=== PATIENT | male | born 1960 | race Caucasian/White ===

== ENCOUNTER 2020-01-27 09:47 | Outpatient (RCR) | payer MEDICAID, SELFPAY | END 2020-01-27 23:59 | disposition home or self-care (01) | LOC: ANHAUDIO 09:47 | PROVIDERS: PCP Family Medicine; Visit Provider Family Medicine | DX: Z46.1 Encounter for fitting and adjustment of hearing aid (principal) | CPT/HCPCS: V5014 ==

== ENCOUNTER 2020-03-14 11:06 | Outpatient (CLI) | payer MEDICARE, MEDICAID, SELFPAY ==
--- NOTE | ~2020-03-14 | XR_ITS ---
EXAMINATION: XR knee RT 3V EXAM DATE: 03/14/2020 11:38 INDICATION: No known recent injury provided at this time. Pain of the right knee. TECHNIQUE: Three projections of the right knee. Comparison is made to prior examination from 7. FINDINGS: No evidence osteochondral defect or joint body in the right knee joint. There are faint meniscal calcifications, chondrocalcinosis. There is advanced arthritis at the proximal tibiofibular syndesmosis, could be posttraumatic or primary. Some scattered arterial sclerosis. There is moderate medial tibiofemoral, mild to moderate lateral tibiofemoral and patellofemoral ulke rtment primary osteoarthritis. No joint effusion. There are no acute fractures or dislocations ident ified. There is no subcutaneous gas. There are no radiopaque foreign bodies. Compared to 2017, mild progression of degenerative changes. IMPRESSION: 1. Advanced right proximal tibiofibular syndesmosis arthritis. 2. Moderate medial tibiofemoral compartment osteoarthritis. 3. Chondrocalcinosis. Reviewed, dictated and finalized at location A.
--- NOTE | ~2020-03-14 | XR_ITS ---
EXAMINATION: XR elbow LT min 3V EXAM DATE: 03/14/2020 11:38 INDICATION: No known recent injury provided at this time. Pain of the left elbow. TECHNIQUE: Left elbow frontal, lateral with flexion, and oblique projections obtained and reviewed. There is no prior study for comparison. FINDINGS: Left elbow anterior humeral line intact. There is mild primary osteoarthritis. No joint effusion. There are no acute fractures or dislocations identified. There is no subcutaneous gas. Th e soft tissue is unremarkable. There are no radiopaque foreign bodies. IMPRESSION: Mild left elbow osteoarthritis. Reviewed, dictated and finalized at location A.
--- NOTE | ~2020-03-14 | XR_ITS ---
EXAMINATION: XR knee LT 3V EXAM DATE: 03/14/2020 11:38 INDICATION: No known recent injury provided at this time. Pain of the left knee. TECHNIQUE: Three projections of the left knee. Comparison is made to prior examination from 11/08/2016 . FINDINGS: No evidence osteochondral defect or joint body in the left knee joint. There is faint me niscal cartilage calcification. Chondrocalcinosis can be an age related finding, but with other possi ble etiologies including CPPD, parathyroid disorders, hemochromatosis, gout. There is mild to moderat e medial tibiofemoral, mild lateral tibiofemoral, patellofemoral primary osteoarthritis. There are no acute fractures or dislocations identified. There is no subcutaneous gas. Some faint arterial calc ifications. There are no radiopaque foreign bodies. Compared to 2017, mild progression in degenerative changes. IMPRESSION: 1. Mild to moderate left knee osteoarthritis. 2. Chondrocalcinosis. Reviewed, dictated and finalized at location A.
== END 2020-03-14 11:07 | disposition home or self-care (01) ==
PROVIDERS: PCP Family Medicine; Visit Provider Family Medicine
DX: M25.522 Pain in left elbow (principal); M25.569 Pain in unspecified knee
CPT/HCPCS: 73080; 73562

== ENCOUNTER 2020-09-14 09:53 | Outpatient (CLI) | payer MEDICARE, MEDICAID, SELFPAY ==
[2020-09-16 01:27] LABS: SARS-CoV-2 RNA PCR Negative
== END 2020-09-14 09:54 | disposition home or self-care (01) ==
LOC: CHSLAB 09:56
PROVIDERS: PCP Family Medicine; Visit Provider Internal Medicine Critical Care Medicine
DX: Z01.812 Encounter for preprocedural laboratory examination (principal); Z20.822 Contact with and (suspected) exposure to COVID-19
CPT/HCPCS: C9803; U0003; U0005

== ENCOUNTER 2020-09-15 09:56 | Outpatient (CLI) | payer MEDICARE, MEDICAID, SELFPAY ==
--- NOTE | ~2020-09-15 | US_ITS ---
EXAMINATION: US arterial ankle brachial ind DATE: 09/15/2020 10:53 INDICATION: Peripheral vascular disease TECHNIQUE: Segmental pressures and plethysmographic and Doppler waveforms of the brachial and lower e xtremity arteries were obtained. COMPARISON: None. FINDINGS: Right and left brachial artery pressures of 127 mm Hg and 125 mm Hg, respectively, are concordant (no rmal difference <= 30 mmHg). The right ankle-brachial index (BARB) is 1.10 (normal >= 0.9-1.0). The right great toe-brachial index (TBI) is 0.96 (normal >= 0.65). Arterial Doppler waveforms are triphasic at the right posterior tibia l artery and biphasic at the right dorsalis pedis artery, both with brisk systolic upstrokes. The left BARB is 1.15. The left TBI is 1.94 suggesting this is artifactually elevated. Arterial Dopple r waveforms are triphasic at the left posterior tibial and biphasic at the left dorsalis pedis artery , both with brisk systolic upstrokes. IMPRESSION: 1. No significant arterial occlusive disease to either lower limb with normal bilateral ABIs Reviewed, dictated and finalized at location A. TRY GRADER IMPRESSION: 1. No significant arterial occlusive disease to either lower limb with normal b ilateral ABIs
== END 2020-09-15 09:57 | disposition home or self-care (01) ==
LOC: CHSIMG 09:59
PROVIDERS: PCP Family Medicine; Visit Provider Family Medicine
DX: I73.9 Peripheral vascular disease, unspecified (principal)
CPT/HCPCS: 93922

== ENCOUNTER 2020-09-16 20:02 | Outpatient (CLI) | payer MEDICARE, MEDICAID, SELFPAY ==
--- NOTE | 2020-09-22 15:04 | WPDSLEEPSTUD ---
Sleep Study Date of Study: 09/16/20 Ordering Provider: Dr.Bryan Parker Interpreting Physician: Sleep Study Type: Split Polysomnogram Height: 1.73 m Weight: 122.47 kg Body Mass Index: 41.0 Neck Circumference: 58.42 cm [place]: 13 Reason for Sleep Study patient has an established diagnosis of sleep apnea and was using positive airway pressure therapy. His machine however has malfunctioned and he needs a repeat evaluation and reassessment of his positive airway pressure need. Sleep History Patient has history of loud disruptive snoring, witnessed apneas, repeated arousals during night time, daytime sleepiness. [facility] Past Medical History Medical History (Updated 04/26/20 @ 10:28 by Ximena Morrison RT(R)) Afib Anxiety Arthritis Arthritis of elbow, left Arthritis of knee, degenerative Bleeding gums Chronic headaches Diabetes Ear pain Hearing loss HLD (hyperlipidemia) HTN (hypertension) Insomnia Nausea & vomiting Pneumonia Sleep apnea Sleep disorder SOB (shortness of breath) on exertion Stomach pain Stomach ulcer Urinary frequency Vision loss Surgical History Surgical History History of ear surgery History of elbow surgery Family History Family History Other Diabetes mellitus Heart disease Hypertension Neuropathy Social History Social History (Updated 04/26/20 @ 10:29 by Ximena Morrison, RT(R)) Smoking status: Former smoker Smoking end date: 08/26/16 Alcohol intake: never Substance use: unknown Gender identity (if verbalized by the patient): Male Medications Home Medications Medication Instructions Recorded Confirmed Type hydrocodone 5 mg-acetaminophen 325 1 tablet PO Q8H PRN 04/25/20 History mg tablet Sleep Procedure Patient underwent standard polysomnographic evaluation using split night protocol. During CPAP titration patient used Quattro Mirage fullface mask of medium size. Sleep Architecture Diagnostic study Total recording time 195 minutes, total sleep time 127 minutes, sleep efficiency 65.2%. Sleep latency 2.7 minutes and there was no REM sleep in the diagnostic study. Sleep stages - awake after sleep onset 65 minutes, stage N1 33.1%, N2 66.9% N3 0%, stage R 0%. Supine sleep 87.2% Treatment study Total recording time 191 minutes, sleep time 167 minutes, sleep efficiency 87.7%. Sleep latency 2.9 minutes, REM latency 8 minutes. Sleep stages awake after sleep onset 20 minutes, stage N1 7.8%, N2 71.6% N3 0%, stage R 20 0.6%. Supine sleep 69%, supine REM 10.5% Respiratory Analysis [facility] criteria used. Diagnostic study - There were no apneas, 197 hypopneas occurred with index 93.1 Treatment study - During CPAP titration there were no apneas noted. Fifty-five hypopneas occurred with index of 19.7. REM index 7.0, non-REM index 23. Supine index 18.2 non supine index 24.3. Arousals Diagnostic study - Total arousals 236 with index 72.7, 146 arousals due to hypopneas, 22 due to snores, 68 spontaneous. Treatment study- Total arousals 59 with index 18.6, 30 related to hypopneas, 11 due to snores 17 spontaneous. Periodic Limb Movements There was 1 leg movement during CPAP therapy with index 0.4. Otherwise there were no leg movements including no PLMs. Oximetry Data diagnostic study- mean oxygen saturation 86%, lowest saturation 71%,SaO2<90-126Min,SaO2<118Min. Treatment study- mean oxygen saturation 91%, lowest saturation 72%,SaO2<90-50Min,SaO2<88-42Min. Snoring Profile loud intermittent snoring. Cardiac Profile Sinus rhythm, mean heart rate 57 beats during diagnostic study. Treatment study - average heart rate 65 beats per minute. No significant arrhythmias. EEG Profile unremarkable EEG. Assessment and Plan Additional Plan the diagnostic study showed presence of severe obstructive sle
[2020-09-22 15:33] VITALS: BMI 41.0
== END 2020-09-16 20:03 | disposition home or self-care (01) ==
LOC: CHSCSM 20:04
PROVIDERS: PCP Family Medicine; Visit Provider Family Medicine
DX: G47.33 Obstructive sleep apnea (adult) (pediatric) (principal)
CPT/HCPCS: 95811

== ENCOUNTER 2020-12-24 09:29 | Outpatient (CLI) | payer MEDICARE, MEDICAID, SELFPAY | END 2020-12-24 09:30 | disposition home or self-care (01) | LOC: CHSCOVIDVC 09:29 | PROVIDERS: PCP Family Medicine | DX: Z23 Encounter for immunization (principal) | CPT/HCPCS: 0011A; 91301 ==

== ENCOUNTER 2021-01-21 09:29 | Outpatient (CLI) | payer MEDICARE, MEDICAID, SELFPAY | END 2021-01-21 09:30 | disposition home or self-care (01) | LOC: CHSCOVIDVC 09:29 | PROVIDERS: PCP Family Medicine | DX: Z23 Encounter for immunization (principal) | CPT/HCPCS: 0012A; 91301 ==

== ENCOUNTER 2021-07-26 10:25 | Outpatient (CLI) | payer MEDICARE, MEDICAID, SELFPAY ==
--- NOTE | 2021-07-26 10:30 | ECG_ITS ---
Measurements Intervals Mason Rate: 65 P: 63 DC: 127 QRS: 31 QRSD: 84 T: 15 QT: 379 QTc: 394 Interpretive Statements SINUS RHYTHM SUPRAVENTRICULAR TRIGEMINY MINIMAL Q WAVES- INFERIOR LEADS BASELINE ARTIFACT- I, II, III, AVR, AVL ABNORMAL ECG Electronically Signed On 07-26-2021 11:21:33 POT PRESS OPERATOR by Galileo Ruvalcaba D.O.
[2021-07-26 11:16] LABS: Anion Gap 11 mmol/L (8-16); Blood Urea Nitrogen 21 mg/dL (9-20); Calcium 9.4 mg/dL (8.4-10.2); Carbon Dioxide 23 mmol/L (22-30); Chloride 100 mmol/L (98-107); Estimated Glomerular Filt Rate > 60; Glucose 316 mg/dL (65-110); Potassium 4.5 mmol/L (3.4-5.0); Sodium 134 mmol/L (137-145)
== END 2021-07-26 10:26 | disposition home or self-care (01) ==
LOC: ANHSURGERY 10:32
PROVIDERS: Anesthesiology; PCP Family Medicine; Visit Provider Surgery
DX: Z01.818 Encounter for other preprocedural examination (principal); E11.9 Type 2 diabetes mellitus without complications; R00.8 Other abnormalities of heart beat
CPT/HCPCS: 36415; 80048; 93005

== ENCOUNTER 2021-08-01 00:26 | Day surgery (SDC) | payer MEDICARE, MEDICAID, SELFPAY ==
[2021-07-17 09:45] VITALS: BMI 41.3
--- NOTE | 2021-07-18 12:49 | PC.NURSE ---
Report to the Outpatient Waiting Room, entrance under the green pavilion located off [facility], at time 1:30 PM on date 08/01/2021. OR Time: 3:30 PM. - You and your visitor will be asked a series of questions to screen for COVID 19 for your protection. - A mask is required within the hospital. - Only one visitor is allowed at this time. Patient visitors will be guided where to wait when not with patient. Preoperative COVID Testing Requirements:PT VACCINATED No COVID Test needed if: (proof is required; if not received patient will have Rapid Test prior to entry) - Patient has received COVID Vaccine at least 14 days prior to procedure date or - Patient has positive COVID test result within last 90 days of surgery date. COVID Test needed if above criteria is not met If not COVID vaccinated a COVID test must be conducted within 72 hours of surgery and patient is asked to isolate self from time of testing until procedure. You will go to the [facility] for your COVID testing. The [facility] site is located at the corner of [address] [facility]. You will only be called if COVID results are positive and your surgeon may reschedule your elective surgery date. Patients may have clear liquids (water, carbonated beverages, clear teas, apple juice) until 3 hours prior to surgery with a maximum of 20 ounces. (BETWEEN MIDNIGHT AND 12:30 PM). - No food from midnight until time of surgery - Infants may have breast milk until 4 hours before surgery, infant formula 6 hours prior to surgery. - Children will be allowed to drink immediately following surgery. If applicable, please bring a bottle or sippy cup to assist with drinking. Juice, water, soda, and popsicles are readily available. For infants on formula, please bring formula the day of surgery. Pacifiers are allowed. Take the following medications with a SIP of water the morning of surgery: ALPRAZOLAM, AMLODIPINE, METOPROLOL Medications to discontinue per physician ELIQUIS Date to take last dose PER PT, DR LONG SAID TO STOP ELIQUIS 2 DAYS PRIOR TO PROCEDURE. Please no make-up, nail wolof, hairspray, perfume, deodorant, or body powder the day of surgery. No jewelry (including any body piercings) or valuables the day of surgery, leave them at home. Please take a shower or bath the night before, or the morning of, surgery with an antibacterial soap. Wear comfortable, loose fitting clothing. Children are encouraged to wear pajamas. - Jewelry must be removed prior to entering the operating room. Rings and piercings that are not removed may be cut off. - The hospital will not accept responsibility for valuables. - Please leave all valuables, including medications, at home the day of surgery. If you are going home after surgery, a licensed route sales driver must drive you home. - NO public transportation without another adult. - We recommend that an adult stay with you for 24 hours following discharge. - We also recommend that you do not drive, make important decision, drink alcoholic beverages, or take any drugs that were not prescribed by your health care provider for at least 24 hours after your discharge time. For Pediatric surgeries, we recommend two adults accompany the child home (only one inside the building at this time). Follow any additional instructions given to you from your surgeon. Telephone instructions given to DYLAN CAI and asked if any additional questions and then verbalized understanding. Patient advised to call surgeon office or pre surgery nurse liaison [phone] if any additional questions.
[2021-08-01] VITALS (7 sets, daily range): BP systolic 111–137; BP diastolic 58–86; PULSE 60–76; RESP 14–20; TEMP 36.4–36.7; O2SAT 95–99; BMI 41.1
--- NOTE | 2021-08-01 11:55 | WPDHPUPDATE1 ---
History and Physical Update Update Date/Time: 08/01/21 11:55 History and Physical has been reviewed, including an updated exam of the patient. There are NO changes in the patient's condition. Risks, benefits, and alternatives have been discussed and questions answered. Patient agrees to proceed with procedure.
--- NOTE | 2021-08-01 11:55 | PM.IMHP ---
H&P: HPI History of Present Illness Date/Time: 08/01/21 11:55 Chief Complaint: Left groin hidradenitis Narrative: This is a 61-year-old man who presents for excision of left groin hidradenitis. He denies any changes since last seen in the office. Review of Systems Review of Systems: All systems reviewed & are unremarkable except as noted in HPI and below Constitutional: Constitutional: Denies chills, Denies fever(s), Denies headache(s) and Denies weight loss Eyes: Eyes: Denies change in vision ENT: Denies dizziness, Denies headache(s), Denies neck mass and Denies throat swelling Cardiovascular: Cardiovascular: Denies chest pain, Denies lightheadedness and Denies dyspnea Respiratory: Respiratory: Denies cough, Denies dyspnea and Denies wheezing Gastrointestinal: Gastrointestinal: Denies abdominal pain, Denies change in bowel habits, Denies nausea and Denies vomiting Genitourinary: Genitourinary: Denies hematuria and Denies dysuria Musculoskeletal: Musculoskeletal: Reports as per HPI Integumentary/Breasts: Skin/Breast: Reports as per HPI Neurologic: Denies dizziness and Denies headache(s) Allergic/Immunologic: Allergic/Immunologic: Denies throat swelling and Denies wheezing PMFSH Past Medical History Medical History Afib Anxiety Arthritis Arthritis of elbow, left Arthritis of knee, degenerative Bleeding gums Chronic headaches Diabetes Ear pain Hearing loss HLD (hyperlipidemia) HTN (hypertension) Insomnia Nausea & vomiting Pneumonia Sleep apnea Sleep disorder SOB (shortness of breath) on exertion Stomach pain Stomach ulcer Urinary frequency Vision loss Surgical History Surgical History H/O hand surgery H/O left knee surgery History of ear surgery History of elbow surgery Hx of tonsillectomy Family History Family History Father Cerebrovascular accident COPD (chronic obstructive pulmonary disease) Mother Acute myocardial infarction Diabetes mellitus Sibling Acute myocardial infarction Other Heart disease Hypertension Neuropathy Social History Social History Years smoked: 40 Smoking status: Former smoker Tobacco type: cigarettes Smoking end date: 08/26/16 Alcohol intake: never Substance use: unknown Last use: 2016 Living arrangements: alone Additional occupation/education comments: disabled Gender identity (if verbalized by the patient): Male Spiritual care concerns: No Meds Home Medications and Allergies Home Medications Medication Instructions Recorded Confirmed Type alprazolam 0.5 mg tablet 0.5 mg PO DAILY 06/30/21 07/17/21 History amlodipine 10 mg tablet 10 mg PO DAILY 06/30/21 07/17/21 History apixaban 5 mg tablet 5 mg PO BID 06/30/21 07/17/21 History aspirin 81 mg capsule 81 mg PO DAILY 06/30/21 07/17/21 History canagliflozin 100 mg tablet 300 mg PO DAILY 06/30/21 07/17/21 History furosemide 40 mg tablet 40 mg PO QAM 06/30/21 07/17/21 History glimepiride 4 mg tablet 4 mg PO QAM 06/30/21 07/17/21 History lisinopril 40 mg tablet 40 mg PO DAILY 06/30/21 07/17/21 History metformin 500 mg tablet 500 mg PO DAILY 06/30/21 07/17/21 History metoprolol succinate 50 mg 50 mg PO DAILY 06/30/21 07/17/21 History tablet,extended release 24 hr pravastatin 40 mg tablet 40 mg PO DAILY 06/30/21 07/17/21 History sitagliptin 100 mg tablet 100 mg PO DAILY 06/30/21 07/17/21 History hydrocodone-acetaminophen 1 tablet PO PRN PRN 07/17/21 07/17/21 History Allergies Allergy/AdvReac Type Severity Reaction Status Date / Time No Known Allergies Allergy Verified 07/17/21 09:52 Exam Const: General: no acute distress and alert Orientation/consciousness: patient oriented x3 HENMT: Head: normocephalic and atraum
[2021-08-01] MEDS: LACTATED RINGERS 1,000 ML 30 ML IV CONT (12:33)
[2021-08-01 12:40] LABS: Glucose Point of Care 183 mg/dl (65-105)
--- NOTE | 2021-08-01 13:08 | WPDANESEPPF ---
Anes - Initial Pre Proc Eval Procedure: Operation Date: 08/01/21 13:30 Proposed Procedures p Excision Left Groin Hidradenitis - Kennedy Calderon DO Date/Time: 08/01/21 13:09 Surgeon: Kennedy Calderon DO Pre Op Diagnosis: hidradenitis left groin Patient Data Age: 61 Gender: M Height: 1.75 m Weight: 126.4 kg Last Vital Signs Temp 36.4 C L 08/01/21 13:06 Pulse 60 08/01/21 13:06 Resp 20 08/01/21 13:06 BP 111/58 L 08/01/21 13:06 Pulse Ox 96 08/01/21 13:06 Allergies Allergy/AdvReac Type Severity Reaction Status Date / Time No Known Allergies Allergy Verified 08/01/21 12:16 Home Medications Medication Instructions Recorded Confirmed Type alprazolam 0.5 mg tablet 0.5 mg PO DAILY 06/30/21 07/17/21 History amlodipine 10 mg tablet 10 mg PO DAILY 06/30/21 07/17/21 History apixaban 5 mg tablet 5 mg PO BID 06/30/21 08/01/21 History canagliflozin 100 mg tablet 300 mg PO DAILY 06/30/21 08/01/21 History furosemide 40 mg tablet 40 mg PO QAM 06/30/21 08/01/21 History glimepiride 4 mg tablet 4 mg PO QAM 06/30/21 08/01/21 History lisinopril 40 mg tablet 40 mg PO DAILY 06/30/21 07/17/21 History metformin 500 mg tablet 500 mg PO DAILY 06/30/21 07/17/21 History metoprolol succinate 50 mg 50 mg PO DAILY 06/30/21 07/17/21 History tablet,extended release 24 hr pravastatin 40 mg tablet 40 mg PO DAILY 06/30/21 07/17/21 History sitagliptin 100 mg tablet 100 mg PO DAILY 06/30/21 07/17/21 History hydrocodone-acetaminophen 1 tablet PO PRN PRN 07/17/21 08/01/21 History Laboratory Tests 08/01/21 12:35 POC Capillary Glucose 183 mg/dl H mg/dl (65-105) Patient hx anesthesia problems: none Family hx anesthesia problems: none Results Review: All pre-operative results and documents have been reviewed as part of the pre-operative evaluation. [facility] Past Medical History Medical History Afib Anxiety Arthritis Arthritis of elbow, left Arthritis of knee, degenerative Bleeding gums Chronic headaches Diabetes Ear pain Hearing loss HLD (hyperlipidemia) HTN (hypertension) Insomnia Nausea & vomiting Pneumonia Sleep apnea Sleep disorder SOB (shortness of breath) on exertion Stomach pain Stomach ulcer Urinary frequency Vision loss Surgical History Surgical History H/O hand surgery H/O left knee surgery History of ear surgery History of elbow surgery Hx of tonsillectomy Family History Family History Father Cerebrovascular accident COPD (chronic obstructive pulmonary disease) Mother Acute myocardial infarction Diabetes mellitus Sibling Acute myocardial infarction Other Heart disease Hypertension Neuropathy Social History Social History Years smoked: 40 Smoking status: Former smoker Tobacco type: cigarettes Smoking end date: 08/26/16 Alcohol intake: never Substance use: unknown Last use: 2016 Living arrangements: alone Additional occupation/education comments: disabled Gender identity (if verbalized by the patient): Male Spiritual care concerns: No Anes - Eval Final PreProcedure Day of Procedure 08/01/21 13:09 Patient weight: morbidly obese Heart: irregular rhythm Lungs: decreased breath sounds Airway: Mallampati scale class III Neurological: alert and oriented Last oral intake: >/= 8 hours ASA classification: III Emergent: no Anesthetic plan: proceed Anesthesia type and monitoring: general LMA and standard monitoring Results Review: All pre-operative results and documents have been reviewed as part of the pre-operative evaluation. Informed Consent: The patient's anesthetic plan and its attendant risks and benefits were discussed with the patient/family/POA. Questions were solicited and a
[2021-08-01] MEDS: ceFAZolin 3 GM/D5W 100 ML 100 ML IVPB (13:57)
[2021-08-01] MEDS: LIDO 1%/EPINEPHRINE 1:100,000 50 ML VIAL 20 ML INFILTRATE (14:16)
[2021-08-01 14:52] LABS: Glucose Point of Care 150 mg/dl (65-105)
--- NOTE | 2021-08-01 14:58 | W.PM.PROC2 ---
Procedure Note - Detailed Date of Procedure 08/01/21 Pre-op Diagnosis hidradenitis left groin Post-op Diagnosis same Procedure Performed Excision of left groin hidradenitis measuring 9 cm by 3 cm Surgeon Kennedy Calderon, DO Anesthesia general and local (1% lidocaine with epinephrine) Indications this is a 61-year-old man who presents with multiple years of dealing with hidradenitis in his groin. He has 1 area in particular that frequently flares up and causes swelling and drainage. He has been placed on oral antibiotics with no significant improvement. Discussions were made with the patient about treatment options and decision was made to proceed with excision left groin hidradenitis. Findings Left groin hidradenitis was excised. The patient had an area along the left groin region more posteriorly that had chronic induration and several sinus tracts. An elliptical incision was made wide enough to encompass this entire region which measured approximately 9 cm x 3 cm. Closure with 3-0 nylon vertical mattress interrupted sutures was performed. Description of Procedure Procedure as well as risks, benefits, and alternatives were discussed with the patient. Written consent was obtained and placed in chart prior to procedure. Patient was brought back to surgical suite. He was placed supine on operating table. Time-out was done to confirm patient and procedure. He was then placed under general anesthesia with LMA by the anesthesia department. He was then placed in lithotomy position. His groin area was prepped and draped in sterile fashion using Betadine prep. 1% lidocaine with epinephrine was then infiltrated locally around the involved area of hidradenitis. A 9 cm x 3 cm elliptical incision was then made around the area using a 15 blade scalpel. Electrocautery was then used for hemostasis and for dissection off of the subcutaneous tissue. The hidradenitis skin was completely excised with electrocautery. It was sent to the lab for pathology. The wound bed was then irrigated with sterile saline. The skin edges were then reapproximated using 3-0 nylon vertical mattress interrupted sutures. Bacitracin ointment was then applied followed by 4 x 4 gauze and tape. The patient was then awakened from anesthesia and transferred to recovery. Estimated Blood Loss -10.0 Pathology yes Complications No immediate complications Condition stable Disposition same day
== END 2021-08-01 16:18 | disposition home or self-care (01) ==
PROVIDERS: PCP Family Medicine; Visit Provider Surgery
PROC: (CPT 11462; principal; 2021-08-01 13:30)
DX: L73.2 Hidradenitis suppurativa (principal); I48.91 Unspecified atrial fibrillation; E11.9 Type 2 diabetes mellitus without complications; I10 Essential (primary) hypertension; E78.5 Hyperlipidemia, unspecified; G47.30 Sleep apnea, unspecified; Z87.891 Personal history of nicotine dependence; E66.01 Morbid (severe) obesity due to excess calories; Z68.41 Body mass index [BMI] 40.0-44.9, adult; Z79.01 Long term (current) use of anticoagulants; Z79.84 Long term (current) use of oral hypoglycemic drugs
CPT/HCPCS: 11462; 82948; 88304; A9270; J0690; J2250; J2270; J2704; J7120

== ENCOUNTER 2022-03-07 10:00 | Outpatient (CLI) | payer MEDICARE, MEDICAID, SELFPAY | END 2022-03-07 10:01 | disposition home or self-care (01) | LOC: CHSAUDIO 10:04 | PROVIDERS: PCP Family Medicine; Visit Provider Family Medicine | DX: H91.93 Unspecified hearing loss, bilateral (principal) | CPT/HCPCS: 92557; 92567 ==

== ENCOUNTER 2022-04-16 13:00 | Outpatient (RCR) | payer MEDICARE, MEDICAID, SELFPAY | END 2022-06-19 23:59 | disposition home or self-care (01) | LOC: ANHAUDASC 13:00 | PROVIDERS: PCP Family Medicine; Visit Provider Family Medicine | DX: Z46.1 Encounter for fitting and adjustment of hearing aid (principal) | CPT/HCPCS: 99199 ==

== ENCOUNTER 2023-03-26 12:19 | Outpatient (CLI) | payer MEDICARE, MEDICAID, SELFPAY ==
--- NOTE | ~2023-03-26 | CT_ITS ---
EXAMINATION: CT lung screening DATE: 03/26/2023 12:43 INDICATION: personal history of nicotine dependence, hx COPD TECHNIQUE: Computed tomography (CT) of the chest was performed without intravenous contrast. Addition al 3D reconstructions utilizing coronal maximum intensity projection (MIP) were performed. Automated exposure control and iterative reconstruction technique were employed. The dose-length product was 86 2.11 mGy-cm. COMPARISON: Chest CT dated 03/19/2019 FINDINGS: Calcified nodules in the right upper and lower and left lower lobes along with calcified right hilar lymph nodes consistent with old granulomatous disease. Unchanged 6 mm noncalcified nodules in the ant erobasilar segment of the left lower lobe. Linear bands of discoid atelectasis/scarring in the bilate ral lower lobes and lingula. No other new pulmonary nodules, pneumonia, pulmonary edema or pleural ef fusion. Heart size is normal. Atherosclerotic coronary artery calcifications. No pericardial effusion . No pathologically enlarged thoracic lymphadenopathy. There is diffuse mild wall thickening along th e distal esophagus which could be seen with reflux or esophagitis. Diffuse hepatic steatosis. 1.2 cm low-attenuation cyst in the left hepatic lobe. Bilateral renal cysts measuring 5 cm at the upper pole of the right kidney and 3 cm at the upper pole of the left kidney. Chronic mild anterior wedging of multiple vertebral bodies and moderate associated spondylosis at the lower thoracic and upper lumbar spine. IMPRESSION: 1. Lung-RADS category 2: Benign appearance or behavior. Continue annual screening with noncontrast lo w-dose chest CT in 12 months. Reviewed, dictated and finalized at location L. IMPRESSION: 1. Lung-RADS category 2: Benign appearance or behavior. Continue annual screeni ng with noncontrast low-dose chest CT in 12 months.
== END 2023-03-26 12:20 | disposition home or self-care (01) ==
LOC: CHSIMG 12:22
PROVIDERS: PCP Family Medicine; Visit Provider Family Medicine
DX: Z12.2 Encounter for screening for malignant neoplasm of respiratory organs (principal); J44.9 Chronic obstructive pulmonary disease, unspecified; Z87.891 Personal history of nicotine dependence
CPT/HCPCS: 71271

== ENCOUNTER 2023-07-01 10:25 | Outpatient (CLI) | payer MEDICARE, MEDICAID, SELFPAY ==
--- NOTE | ~2023-07-01 | US_ITS ---
EXAMINATION: US arterial ankle brachial ind DATE: 07/01/2023 11:02 INDICATION: Peripheral vascular disease TECHNIQUE: Segmental pressures and plethysmographic and Doppler waveforms of the brachial and lower e xtremity arteries were obtained. COMPARISON: None. FINDINGS: Right and left brachial artery pressures of 103 mm Hg and 110 mm Hg, respectively, are concordant (no rmal difference <= 30 mmHg). The right ankle-brachial index (BARB) is 1.15 (normal >= 0.9-1.0). The right great toe-brachial index (TBI) is 1.32 (normal >= 0.65). Arterial Doppler waveforms are biphasic with brisk systolic upstrokes at both right posterior tibial and dorsalis pedis arteries. Cardiac arrhythmia is present. The left BARB is 1.12. The left TBI is 0.88. Arterial Doppler waveforms are biphasic with brisk systol ic upstrokes at both left posterior tibial and dorsalis pedis arteries. IMPRESSION: 1. No significant arterial occlusive disease with normal bilateral ABIs and TBIs. 2. Cardiac arrhythmias present. Correlate with EKG. Reviewed, dictated and finalized at location A. 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 No significant arterial occlusive disease with normal bilateral ABIs and TBI s. 2. Cardiac arrhythmias present. Correlate with EKG.
== END 2023-07-01 10:26 | disposition home or self-care (01) ==
LOC: CHSIMG 10:27
PROVIDERS: PCP Family Medicine; Visit Provider Family Medicine
DX: I73.9 Peripheral vascular disease, unspecified (principal); I49.9 Cardiac arrhythmia, unspecified
CPT/HCPCS: 93922

== ENCOUNTER 2023-08-24 10:23 | Outpatient (CLI) | payer MEDICARE, MEDICAID, SELFPAY | END 2023-08-24 10:24 | disposition home or self-care (01) | PROVIDERS: PCP Family Medicine; Visit Provider Family Medicine | DX: R19.7 Diarrhea, unspecified (principal) | CPT/HCPCS: 87324 ==

== ENCOUNTER 2024-04-24 10:13 | Outpatient (CLI) | payer MEDICARE, MEDICAID, SELFPAY ==
[2024-04-24 10:27] LABS: Basophils Percent Auto 1.1 % (0.0-1.0); Eosinophils Absolute Auto 0.28 K/mm3 (0.02-0.50); Eosinophils Percent Auto 3.2 % (1.0-6.0); Hemoglobin 16.2 g/dL (14.0-18.0); Immature Granulocyte Absolute 0.02 K/mm3 (0.00-0.00); Immature Granulocyte Percent A 0.2 % (0.0-0.0); Lymphocytes Absolute Auto 2.67 K/mm3 (1.10-4.50); Lymphocytes Percent Auto 30.1 % (18.0-42.0); Mean Corpuscular HGB Conc 33.8 g/dL (32-36); Mean Corpuscular Hemoglobin 30.4 pg (27.0-31.0); Mean Corpuscular Volume 90.1 fL (78.0-102.0); Mean Platelet Volume 9.1 fl (8.7-11.0); Monocytes Absolute Auto 0.71 K/mm3 (0.10-0.90); Neutrophils Absolute Auto 5.09 K/mm3 (1.70-7.20); Neutrophils Percent Auto 57.4 % (50.0-70.0); Platelet Count Result 214 K/mm3 (150-420); Red Blood Count 5.33 M/mm3 (4.70-6.10); Red Cell Distribution Width 13.5 % (11.6-14.4); White Blood Count 8.9 K/mm3 (4.8-10.8)
[2024-04-24 11:12] LABS: Alanine Aminotransferase 32 U/L (16-63); Albumin Level 4.2 g/dL (3.4-5.0); Alkaline Phosphatase 62 U/L (46-116); Amylase 92 U/L (25-115); Anion Gap 10 mmol/L (4-12); Aspartate Amino Transferase 23 U/L (15-37); Bilirubin,Total 0.7 mg/dL (0.00-1.00); Blood Urea Nitrogen 19 mg/dL (7-18); Calcium 9.3 mg/dL (8.5-10.1); Carbon Dioxide 27 mmol/L (21-32); Chloride 99 mmol/L (98-108); Estimated Glomerular Filt Rate > 60; Glucose 158 mg/dL (70-99); Lipase 102 U/L (16-77); Osmolality Calculated 287 mOsm/kg (285-295); Potassium 4.3 mmol/L (3.5-5.1); Prostate Specific Antigen 1.7 ng/mL (< OR = 4.0); Sodium 136 mmol/L (136-145); Total Protein 7.9 g/dL (6.4-8.2)
== END 2024-04-24 10:14 | disposition home or self-care (01) ==
LOC: CHSLAB 10:17
PROVIDERS: PCP Family Medicine; Visit Provider Family Medicine
DX: R10.32 Left lower quadrant pain (principal); Z12.5 Encounter for screening for malignant neoplasm of prostate
CPT/HCPCS: 36415; 80053; 82150; 83690; 84153; 85025; G0103

== ENCOUNTER 2024-04-30 09:23 | Outpatient (CLI) | payer MEDICARE, MEDICAID, SELFPAY ==
--- NOTE | ~2024-04-30 | CT_ITS ---
CT of the Abdomen and Pelvis: Indication: Abdominal pain Technique: 2.5 mm axial scans were obtained through the abdomen and pelvis following intravenous adm inistration of 100 cc of Omnipaque 350. Dose reduction technique was used on this scan by utilizing a utomated exposure control and iterative reconstruction technique. The dose-length product (DLP) was 1 220.15 mGy-cm. COMPARISON: 03/26/2023 Findings: Scans through the lung bases demonstrates 7 mm left basilar pulmonary nodule, unchanged. Somewhat nodular contour of liver noted. The spleen, pancreas, gallbladder, adrenals and kidneys are within normal limits. There are atherosclerotic calcifications of the aorta. No lymphadenopathy. No bowel obstruction or bowel wall thickening. There is no evidence to suggest acute appendicitis. Images through the pelvis were performed. Urinary bladder unremarkable. Prostate gland mildly enlarge d. No ascites. Impression: Suspected cirrhotic change of the liver. Stable 7 mm basilar pulmonary nodule, therefore likely benign. Reviewed, dictated and finalized at location . Impression: Suspected cirrhotic change of the liver. Stable 7 mm basilar pulmonary nodule, therefore likely benign.
== END 2024-04-30 09:24 | disposition home or self-care (01) ==
LOC: CHSIMG 09:25
PROVIDERS: PCP Family Medicine; Visit Provider Family Medicine
DX: R10.32 Left lower quadrant pain (principal); R91.1 Solitary pulmonary nodule
CPT/HCPCS: 74177; Q9967

== ENCOUNTER 2024-06-02 00:15 | Day surgery (SDC) | payer MEDICARE, MEDICAID, SELFPAY ==
[2024-05-26 10:09] VITALS: BMI 37.3
--- NOTE | 2024-05-26 10:29 | SUR.PREOP ---
Spoke with PATIENT regarding medication Eliquis. Pt. verbalizes understanding that the last dose of Eliquis is to be taken on 05/30/2024 and the Endoscopist will instruct them when to restart after the procedure.
[2024-06-02 09:50] VITALS: BP 122/82; PULSE 71; RESP 16; TEMP 36.2; O2SAT 98; BMI 36.6
[2024-06-02] MEDS: LACTATED RINGERS 1,000 ML 150 ML IV CONT (10:02)
[2024-06-02 10:04] LABS: Glucose Point of Care 113 mg/dl (65-105)
--- NOTE | 2024-06-02 10:27 | PM.HPGS ---
History of Present Illness History of Present Illness Consent: Risks, benefits, and alternatives have been discussed and questions answered. Patient agrees to proceed with procedure. Chief complaint: Pers. Hx. Colon polyps Narrative: Nolberto Dockery is a 64 year old male with colon polyp 6 years ago Review of Systems Review of Systems: All systems reviewed & are unremarkable except as noted in HPI and below PMFSH Past Medical History Medical History (Updated 06/02/24 @ 10:31 by Thom Strickland MD) Afib Anxiety Arthritis Arthritis of elbow, left Arthritis of knee, degenerative Bleeding gums Chronic headaches Colon polyp Diabetes Ear pain Hearing loss HLD (hyperlipidemia) HTN (hypertension) Insomnia Nausea & vomiting Pneumonia Sleep apnea Sleep disorder SOB (shortness of breath) on exertion Stomach pain Stomach ulcer Urinary frequency Vision loss Surgical History Surgical History H/O excision of mass exc left groin hidradentitis 08/01/21 H/O hand surgery H/O left knee surgery History of ear surgery History of elbow surgery Hx of tonsillectomy Family History Family History Father Cerebrovascular accident COPD (chronic obstructive pulmonary disease) Mother Acute myocardial infarction Diabetes mellitus Sibling Acute myocardial infarction Other Heart disease Hypertension Neuropathy Social History Social History Years smoked: 43 Smoking status: Former smoker Tobacco type: cigarettes Smoking end date: 08/26/16 Alcohol intake: never Substance use: unknown Substance use type: does not use Last use: 2016 Living arrangements: alone Occupation/Education: unemployed Additional occupation/education comments: disabled Gender identity (if verbalized by the patient): Male Spiritual care concerns: No Meds Home Medications and Allergies Home Medications Medication Instructions Recorded Confirmed Type alprazolam 0.5 mg tablet (Xanax) 0.5 mg PO DAILY 06/30/21 06/02/24 History amlodipine 10 mg tablet 10 mg PO DAILY 06/30/21 06/02/24 History apixaban 5 mg tablet (Eliquis) 5 mg PO BID 06/30/21 06/02/24 History canagliflozin 100 mg tablet 300 mg PO DAILY 06/30/21 06/02/24 History (Invokana) furosemide 40 mg tablet 40 mg PO QAM 06/30/21 06/02/24 History glimepiride 4 mg tablet 4 mg PO QAM 06/30/21 06/02/24 History lisinopril 40 mg tablet 40 mg PO DAILY 06/30/21 06/02/24 History metformin 500 mg tablet 500 mg PO DAILY 06/30/21 06/02/24 History metoprolol succinate 50 mg 50 mg PO DAILY 06/30/21 06/02/24 History tablet,extended release 24 hr pravastatin 40 mg tablet 40 mg PO DAILY 06/30/21 06/02/24 History hydrocodone 7.5 mg-acetaminophen 1 tablet PO PRN PRN Pain 07/17/21 06/02/24 History 325 mg tablet semaglutide 2 mg/dose (8 mg/3 mL) 2 mg subcut WEEKLY 05/26/24 06/02/24 History subcutaneous pen injector (Ozempic) Allergies Allergy/AdvReac Type Severity Reaction Status Date / Time No Known Allergies Allergy Verified 06/02/24 09:47 Vital Signs Vital Signs - 24 hr 06/02/24 09:50 Temperature 97.2 F L Pulse Rate 71 Respiratory Rate 16 Blood Pressure 122/82 Pulse Oximetry 98 Oxygen Delivery Room Air Exam Const: General: comfortable and no acute distress HENMT: Face/Nose/Sinus: Normal nares present Eyes: General: appearance normal, both eyes and all related structures Neck: Neck: no JVD Resp: Auscultation: clear to auscultation bilaterally Cardio: Rate: regular rate Rhythm: regular rhythm GI: Inspection: non-distended GI Palp: Yes Soft to palpation Skin: General skin exam: normal color Neuro: General: gait normal Speech: normal speech Extrem: General: normal to inspection Psych: Mental Status: mental status
--- NOTE | 2024-06-02 10:40 | WPDANESEPPF ---
Anes - Initial Pre Proc Eval Procedure: Operation Date: 06/02/24 11:00 Proposed Procedures p Colonoscopy - Thom Strickland MD Date/Time: 06/02/24 10:40 Surgeon: Thom Strickland MD Pre Op Diagnosis: Pers. Hx. Colon polyps Patient Data Age: 64 Gender: M Height: 1.78 m Weight: 116 kg Last Vital Signs Temp 97.2 F L 06/02/24 09:50 Pulse 71 06/02/24 09:50 Resp 16 06/02/24 09:50 BP 122/82 06/02/24 09:50 Pulse Ox 98 06/02/24 09:50 O2 Del Method Room Air 06/02/24 09:50 Allergies Allergy/AdvReac Type Severity Reaction Status Date / Time No Known Allergies Allergy Verified 06/02/24 09:47 Home Medications Medication Instructions Recorded Confirmed Type alprazolam 0.5 mg tablet (Xanax) 0.5 mg PO DAILY 06/30/21 06/02/24 History amlodipine 10 mg tablet 10 mg PO DAILY 06/30/21 06/02/24 History apixaban 5 mg tablet (Eliquis) 5 mg PO BID 06/30/21 06/02/24 History canagliflozin 100 mg tablet 300 mg PO DAILY 06/30/21 06/02/24 History (Invokana) furosemide 40 mg tablet 40 mg PO QAM 06/30/21 06/02/24 History glimepiride 4 mg tablet 4 mg PO QAM 06/30/21 06/02/24 History lisinopril 40 mg tablet 40 mg PO DAILY 06/30/21 06/02/24 History metformin 500 mg tablet 500 mg PO DAILY 06/30/21 06/02/24 History metoprolol succinate 50 mg 50 mg PO DAILY 06/30/21 06/02/24 History tablet,extended release 24 hr pravastatin 40 mg tablet 40 mg PO DAILY 06/30/21 06/02/24 History hydrocodone 7.5 mg-acetaminophen 1 tablet PO PRN PRN Pain 07/17/21 06/02/24 History 325 mg tablet semaglutide 2 mg/dose (8 mg/3 mL) 2 mg subcut WEEKLY 05/26/24 06/02/24 History subcutaneous pen injector (Ozempic) Laboratory Tests 06/02/24 09:54 POC Capillary Glucose 113 H mg/dl (65-105) Patient hx anesthesia problems: none Family hx anesthesia problems: none Results Review: All pre-operative results and documents have been reviewed as part of the pre-operative evaluation. [facility] Past Medical History Medical History (Updated 06/02/24 @ 10:31 by Thom Strickland MD) Afib Anxiety Arthritis Arthritis of elbow, left Arthritis of knee, degenerative Bleeding gums Chronic headaches Colon polyp Diabetes Ear pain Hearing loss HLD (hyperlipidemia) HTN (hypertension) Insomnia Nausea & vomiting Pneumonia Sleep apnea Sleep disorder SOB (shortness of breath) on exertion Stomach pain Stomach ulcer Urinary frequency Vision loss Surgical History Surgical History H/O excision of mass exc left groin hidradentitis 08/01/21 H/O hand surgery H/O left knee surgery History of ear surgery History of elbow surgery Hx of tonsillectomy Family History Family History Father Cerebrovascular accident COPD (chronic obstructive pulmonary disease) Mother Acute myocardial infarction Diabetes mellitus Sibling Acute myocardial infarction Other Heart disease Hypertension Neuropathy Social History Social History Years smoked: 43 Smoking status: Former smoker Tobacco type: cigarettes Smoking end date: 08/26/16 Alcohol intake: never Substance use: unknown Substance use type: does not use Last use: 2016 Living arrangements: alone Occupation/Education: unemployed Additional occupation/education comments: disabled Gender identity (if verbalized by the patient): Male Spiritual care concerns: No Anes - Eval Final PreProcedure Day of Procedure 06/02/24 10:40 Patient weight: obese Heart: regular rate and rhythm Lungs: clear to auscultation Airway: Mallampati scale class III Neurological: alert and oriented Last oral intake: >/= 8 hours ASA classification: III Emergent: no Anesthetic plan: proceed Anesthesia type and monitoring: general GIVS and s
[2024-06-02 10:48] VITALS: BP 106/63; PULSE 83; RESP 22; O2SAT 96
[2024-06-02 10:58] VITALS: BP 100/69; PULSE 82; RESP 21; O2SAT 93
[2024-06-02 11:08] VITALS: BP 108/66; PULSE 70; RESP 19; O2SAT 93
[2024-06-02 11:16] LABS: Glucose Point of Care 93 mg/dl (65-105)
== END 2024-06-02 11:30 | disposition home or self-care (01) ==
PROVIDERS: PCP Family Medicine; Referring Provider Internal Medicine Gastroenterology; Visit Provider Internal Medicine Gastroenterology
PROC: 0DJD8ZZ Inspection of Lower Intestinal Tract, Via Natural or Artificial Opening Endoscopic (ICD-10-PCS; CPT 45378; principal; 2024-06-02 11:00)
DX: Z12.11 Encounter for screening for malignant neoplasm of colon (principal); K64.8 Other hemorrhoids; K57.30 Diverticulosis of large intestine without perforation or abscess without bleeding; E11.9 Type 2 diabetes mellitus without complications; E78.5 Hyperlipidemia, unspecified; I10 Essential (primary) hypertension; I48.91 Unspecified atrial fibrillation; F41.9 Anxiety disorder, unspecified; M19.022 Primary osteoarthritis, left elbow; R51.9 Headache, unspecified; G47.00 Insomnia, unspecified; G47.30 Sleep apnea, unspecified; R35.0 Frequency of micturition; E66.9 Obesity, unspecified; Z68.36 Body mass index [BMI] 36.0-36.9, adult; Z79.01 Long term (current) use of anticoagulants; Z79.84 Long term (current) use of oral hypoglycemic drugs; Z79.891 Long term (current) use of opiate analgesic; Z79.85 Long-term (current) use of injectable non-insulin antidiabetic drugs; Z98.890 Other specified postprocedural states; Z87.891 Personal history of nicotine dependence; Z86.0100 Personal history of colon polyps, unspecified; Z82.49 Family history of ischemic heart disease and other diseases of the circulatory system
CPT/HCPCS: G0105; 82948; J2003; J2704; J7120

== ENCOUNTER 2024-08-10 12:56 | Outpatient (CLI) | payer MEDICARE, MEDICAID, SELFPAY ==
--- NOTE | ~2024-08-10 | CT_ITS ---
EXAMINATION: CT IAC/mastoids BI wo con DATE: 08/10/2024 13:40 INDICATION: Chronic left-sided hearing loss. Chronic otorrhea. TECHNIQUE: Computed tomography (CT) of the temporal bones was performed without intravenous contrast. Automated exposure control and iterative reconstruction technique were employed. The dose-length pro duct was 345.39 mGy-cm. COMPARISON: None FINDINGS: RIGHT TEMPORAL BONE: The internal auditory canal, cochlea, vestibule, semicircular canals, vestibular aqueduct, carotid ca nal, jugular bulb, facial nerve course, and ossicles are normal. There is material abutting the ossic les. There is thickening of tympanic membrane. Scutum is normal. The external auditory canal is mar l. There is a small mastoid effusion. LEFT TEMPORAL BONE: The internal auditory canal, cochlea, vestibule, semicircular canals, vestibular aqueduct, facial ner ve course, carotid canal, and jugular bulb are normal. There is material in the tympanic cavity inclu ding abutting the ossicles with erosions of the ossicles. There is a left mastoid effusion. There is thickening of the tympanic membrane. There are erosions of scutum. IMPRESSION: 1. Right otomastoid effusion. 2. Left otomastoid effusion with erosions of the ossicles and scutum, consistent with chronic otitis media. Reviewed, dictated and finalized at location A. 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 Right otomastoid effusion. 2. Left otomastoid effusion with erosions of the ossicles and scutum, consisten t with chronic otitis media.
== END 2024-08-10 12:57 | disposition home or self-care (01) ==
LOC: CHSIMG 13:00
PROVIDERS: PCP Family Medicine
DX: H92.10 Otorrhea, unspecified ear (principal); H90.6 Mixed conductive and sensorineural hearing loss, bilateral; H72.90 Unspecified perforation of tympanic membrane, unspecified ear; H92.03 Otalgia, bilateral
CPT/HCPCS: 70480

== ENCOUNTER 2024-08-28 09:32 | Outpatient (CLI) | payer MEDICARE, MEDICAID, SELFPAY ==
--- NOTE | ~2024-08-28 | CT_ITS ---
EXAMINATION: CT lung screening DATE: 08/28/2024 10:00 INDICATION: SMOKER SCREENING,COPD,CHRONIC SOB TECHNIQUE: Computed tomography (CT) of the chest was performed without intravenous contrast. Addition al 3D reconstructions utilizing coronal maximum intensity projection (MIP) were performed. Automated exposure control and iterative reconstruction technique were employed. The dose-length product was 36 5.87 mGy-cm. COMPARISON: 03/26/2023 and 03/19/2019 FINDINGS: There are couple calcified nodules in the right upper and bilateral lower lobes along with calcified right hilar lymph nodes consistent with old granulomatous disease. No significant change in a 7 mm no ncalcified left lower lobe nodule. Unchanged linear discoid atelectasis/scarring at the lingula and r ight lower lobe. No new or enlarging pulmonary nodules, pneumonia, pulmonary edema or pleural effusio n. Heart size is normal. Atherosclerotic coronary artery calcifications. No pericardial effusion. Tho racic aorta is normal in caliber. No pathologically enlarged thoracic lymphadenopathy. Diffuse mild w all thickening at the mid to distal esophagus. Partially visualized bilateral renal cysts the largest on the right measuring at least 4 cm. Moderate thoracolumbar spondylosis with chronic mild anterior wedging of T9-L1. IMPRESSION: 1. Lung-RADS category 2: Benign appearance or behavior. Continue annual screening with noncontrast lo w-dose chest CT in 12 months. Reviewed, dictated and finalized at location B. I PRACTITIONER IMPRESSION: 1. Lung-RADS category 2: Benign appearance or behavior. Continue annual screeni ng with noncontrast low-dose chest CT in 12 months.
== END 2024-08-28 09:33 | disposition home or self-care (01) ==
PROVIDERS: PCP Family Medicine; Visit Provider Family Medicine
DX: Z12.2 Encounter for screening for malignant neoplasm of respiratory organs (principal); Z87.891 Personal history of nicotine dependence; R94.2 Abnormal results of pulmonary function studies
CPT/HCPCS: 71271; 94060; 94726; 94729

== ENCOUNTER 2024-11-26 11:13 | Emergency (ER) | payer MEDICARE, MEDICAID, SELFPAY ==
[2024-11-26 11:13] VITALS: BP 131/84; PULSE 104; RESP 16; TEMP 36.1; O2SAT 95
--- NOTE | 2024-11-26 11:20 | ED_ITS ---
HPI - Wound/Laceration General Chief Complaint: Skin/Abscess/Foreign Body Stated Complaint: wound Time Seen by Provider: 11/26/24 11:20 Source: patient Mode of arrival: ambulatory Limitations: no limitations History of Present Illness HPI narrative: this 64-year-old male presents with a wound to his right lower abdominal area with some redness / erythema warmth and a central eschar area which possible spider bite. There is no drainage there is no fever chills no shortness of breath no chest pain or abdominal pain. Onset (ago): day(s) Location: abdomen Related Data Home Medications ?Medication ?Instructions ?Recorded ?Confirmed ?Last Taken ?Type alprazolam 0.5 mg tablet (Xanax) 0.5 mg PO DAILY 06/30/21 06/02/24 06/01/24 History amlodipine 10 mg tablet 10 mg PO DAILY 06/30/21 06/02/24 06/01/24 History apixaban 5 mg tablet (Eliquis) 5 mg PO BID 06/30/21 06/02/24 05/30/24 History canagliflozin 100 mg tablet 300 mg PO DAILY 06/30/21 06/02/24 06/01/24 History (Invokana) furosemide 40 mg tablet 40 mg PO QAM 06/30/21 06/02/24 06/01/24 History glimepiride 4 mg tablet 4 mg PO QAM 06/30/21 06/02/24 06/01/24 History lisinopril 40 mg tablet 40 mg PO DAILY 06/30/21 06/02/24 06/01/24 History metformin 500 mg tablet 500 mg PO DAILY 06/30/21 06/02/24 06/01/24 History metoprolol succinate 50 mg 50 mg PO DAILY 06/30/21 06/02/24 06/01/24 History tablet,extended release 24 hr pravastatin 40 mg tablet 40 mg PO DAILY 06/30/21 06/02/24 06/01/24 History hydrocodone 7.5 mg-acetaminophen 1 tablet PO PRN PRN Pain 07/17/21 06/02/24 07/31/21 History 325 mg tablet semaglutide 2 mg/dose (8 mg/3 mL) 2 mg subcut WEEKLY 05/26/24 06/02/24 05/26/24 History subcutaneous pen injector (Ozempic) Allergies Allergy/AdvReac Type Severity Reaction Status Date / Time No Known Allergies Allergy Verified 06/02/24 09:47 Review of Systems Review of Systems: All systems reviewed & are unremarkable except as noted in HPI and below PMFSH Past Medical History Medical History Colon polyp Sleep disorder Stomach ulcer Ear pain Arthritis of knee, degenerative Arthritis of elbow, left Arthritis Insomnia Anxiety Diabetes Urinary frequency Stomach pain Nausea & vomiting HTN (hypertension) HLD (hyperlipidemia) Afib Sleep apnea SOB (shortness of breath) on exertion Pneumonia Bleeding gums Hearing loss Vision loss Chronic headaches Surgical History Surgical History H/O excision of mass exc left groin hidradentitis 08/01/21 H/O hand surgery H/O left knee surgery Hx of tonsillectomy History of ear surgery History of elbow surgery Family History Family History Father Cerebrovascular accident COPD (chronic obstructive pulmonary disease) Mother Acute myocardial infarction Diabetes mellitus Sibling Acute myocardial infarction Other Heart disease Hypertension Neuropathy Social History Social History Years smoked: 43 Smoking status: Former smoker Tobacco type: cigarettes Smoking end date: 08/26/16 Alcohol intake: never Substance use: unknown Substance use type: does not use Last use: 2016 Living arrangements: alone Occupation/Education: unemployed Additional occupation/education comments: disabled Gender identity (if verbalized by the patient): Male Spiritual care concerns: No Exam Const: General: healthy appearing and no acute distress Nutritional Appearance: well nourished and obese Orientation/consciousness: patient oriented x3 Resp: Effort & Inspection: normal respiratory effort Auscultation: clear to auscultation bilaterally Cardio: Rate: regular rate Rhythm: regular rhythm Back/Spine/Pelvis: Back: no CVA tenderness Skin: Wounds: wounds noted Other: Erythema warmth and tenderness the right lower abdominal area proximally off 3cm in diameter. Neuro: General: patient oriented x3 and moves all extremities Course Course Emergency Course: Will send antibiotics to patient's local pharmacy, can take Tylenol or Motrin as needed. Critical Care Time Critical Care Time Critical Care Time: No Discharge Plan Discharge Clinical Impression: Insect bite, Cellulitis Patient Disposition: Home, Self-Care Condition: Stable Instructions: Antibiotic Form Additional Instructions: advised to take medication as prescribed, can take Tylenol Motrin as needed and to follow up with primary care physician within 1 to 2 weeks for further evaluation and treatment. Patient Language: Finnish Prescriptions: New amoxicillin-pot clavulanate [Augmentin] 500-125 mg tablet 1 tablet PO TID Qty: 30 0RF No Action alprazolam [Xanax] 0.5 mg tablet 0.5 mg PO DAILY metoprolol succinate 50 mg tablet extended release 24 hr 50 mg PO DAILY amlodipine 10 mg tablet 10 mg PO DAILY lisinopril 40 mg tablet 40 mg PO DAILY metformin 500 mg tablet 500 mg PO DAILY Invokana 100 mg tablet 300 mg PO DAILY furosemide 40 mg tablet 40 mg PO QAM Eliquis 5 mg tablet 5 mg PO BID pravastatin 40 mg tablet 40 mg PO DAILY glimepiride 4 mg tablet 4 mg PO QAM Rx Instructions: administer with breakfast hydrocodone-acetaminophen 7.5-325 mg tablet 1 tablet PO PRN PRN (Reason: Pain) Ozempic 2 mg/dose (8 mg/3 mL) pen injector 2 mg SUBCUT WEEKLY Rx Instructions: Takes it on Tuesdays Follow-up/Referrals: Nolan Parker MD [Primary Care Provider] -
[2024-11-26] MEDS: TETANUS,DIPHTHERIA,AC PERTUSSIS ADULT 0.5 ML (ADACEL) IM (11:34)
--- NOTE | 2024-11-26 11:44 | PC.NURSE ---
On 11/26/24, the student, [maría early ], provided care and completed [facility] documentation on this patient. I have reviewed the student's documentation and agree with the findings.
--- OUTSIDE RECORDS SUMMARY | 2024-11-26 12:07 | XMS_ITS | Referral Summary ---
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 Procedure Note Provider, MD Hetal - 07/22/2012 12:00 AM CST PROCEDURE REPORT Patient: NOLBERTO CAI Account: [id number] Room No: : 1960 Patient Type: [facility] Attend.: Fernando Schmitz M.D. Admit Date: 07/22/2012 Dict.: Fernando Schmitz M.D. Disch. Date: NAME OF PROCEDURE: Colonoscopy with polypectomy. INDICATION: Screening for colon cancer. DATE OF PROCEDURE: 07/22/2012. PRIMARY CARE PHYSICIAN: Dr. Daniel aPrker. BRIEF HISTORY AND PHYSICAL: The patient is a 52-year-old white male withno previous full colonoscopy. Three years ago he had incomplete colonoscopyafter respiratory failure during the procedure. No family history of coloncancer. The patient also described complaints of pain in the left side of theabdomen for five years. PROCEDURE: Sedation was provided by Anesthesia Service. The procedureof colonoscopy including indications and possible complications ofbleeding, infection and perforation requiring surgery were discussed with thepatient and consent was obtained. Rectal exam prior to colonoscopy was unremarkable.The scope was introduced in the rectum, advanced all the way to the cecum.The colon was tortuous especially on the right side of the colon withintense spasm. The cecum was identified by the ileocecal valve and appendiceal orifice. In the ascending colon there was 5 mm semi-sessile polyp removedby cold biopsy forceps. The transverse colon and descending colon were unremarkable. There was moderate degree of diverticulosis in thesigmoid colon. In the rectum there was 5 mm sessile polyp. The polyp wasremoved initially by cold biopsy forceps, then completed by hot biopsy forcepswith cauterization of the base. Retroflexion in the stomach was otherwise unremarkable. IMPRESSION: 1. 5 mm polyp in the ascending colon with benign appearance removed bycold biopsy forceps. 2. 5 mm sessile polyp with benign appearance in the rectum removed byhot biopsy forceps. 3. Diverticulosis in the sigmoid colon. RECOMMENDATIONS: 1. Follow pathology report. 2. Trial of antispasmodic medication such as dicyclomine for pain. 3. Follow up in our office if needed otherwise. 4. Follow up with primary care physician as scheduled. Viktoria Armstrong/keaton TD: 07/22/2012 14:37 CC: Dr. Daniel Parker Authenticated by Fernando Schmitz MD On 08/01/2012 12:28:00 PM us Historical Provider ENDOSCOPY PROCEDURES Wanda l Result from Last 3 Months or Most Recently Relevant to Health Maintenance Insurance MEDICARE IDPA Care Teams Area Secretary Relationship Specialty Start Date End Date Nolan Parker MD [address] [place] [address] PCP - General Family Medicine 07/11/23
--- OUTSIDE RECORDS SUMMARY | 2024-11-26 12:07 | XMS_ITS | Encounter Summary ---
Author Organization [facility] Address [facility] [place] [address] Care Team Providers Care Graduate Intern Name Role Phone Nolan Parker MD Primary Care Provider [phone] Jericho Rasmussen MD Unavailable [phone] Isaura Rivera APRN, HUMAN SERVICE TECHNICIAN-C Unavailable [phone] Ovi Jasmine MD Unavailable Aiyana Darling MD Unavailable Gato Steward MD Unavailable [phone] Encounter Details Date Type Department Care Team (Late st Contact Info) Description 12/17/2022 Pre-Procedure Call [facility] [address] [place] [address] Aiyana Darling MD [address] [place] [address] Social History Tobacco Use Types Packs/Day Years Used Date Smoking Tobacco: Former Cigarettes 0 01/27/1982 - 01/27/2017 Smokeless Tobacco: Never Alcohol Use Standard Drinks/Week Comments No 0 (1 standard drink = 0.6 oz pur e alcohol) Sex and Gender Information Value Date Recorded Sex Assigned at Not on file Legal Sex Male 9:46 PM CDT Gender Identity Not on file Sexual Orientation Not on file Occupation Industry Job Start Date Job End Date disabled Not on file Not on file Not on file documented as of this encounter Plan of Treatment Upcoming Encounters Date Type Department Care Team (Late Contact Info) Description 12/17/2024 12:30 PM CDT Office Visit [facility] [address] [place] [address] Aiyana Darling MD [address] [place], [place] [phone] 02/08/2025 9:00 AM CDT App[place]ment [place] [address] [place] [address] Aiyana Darling MD [address] [place], [place] [address] 02/22/2025 3:30 PM CDT Office Visit [facility] [address] [place] [address] Aiyana Darling MD [address] [place], [place] [phone] documented as of this encounter Visit Diagnoses Not on filedocumented in this encounter Additional Health Concerns Infection Onset Date Last Indicated Resolved Time 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 07/16/2017 documented as of this encounter Care Teams Graduate Intern Relationship Specialty Start Date End Date Nolan Parker MD [address] [place] [address] PCP - General FAMILY PRACTICE 07/10/16 Jericho Rasmussen MD [address] [place] [address] HF Granulator Machine Operator CARDIOVASCULAR DISEASE 02/27/18 3 Isaura Rivera APRN, HUMAN SERVICE TECHNICIAN-C [address] [place] [address] Vascular/Granulator Machine Operator CARDIOVASCULAR DISEASE 08/13/18 02/17/23 Ovi Jasmine MD [address] [place] [address] Consulting Physician INTERVENTIONAL CARDIOLOGY 06/15/19 02/17/23 Aiyana Darling MD [address] [place] [address] Consulting Physician CARDIOVASCULAR DISEASE 02/15/23 Gato Steward MD [address] [place] [address] OTOLARYNGOLOGY 08/20/24 documented as of this encounter
--- OUTSIDE RECORDS SUMMARY | 2024-11-26 12:07 | XMS_ITS | Clinical Summary ---
Author Organization [facility] Address [address] [place] [address] Care Team Providers Care Catalyst Operator Name Role Phone Nolan Parker MD Primary Care Provide r Allergies No known active allergies Social History Tobacco Use Types Packs/Day Years Used Date Smoking Tobacco: Never Assessed Personal Safety Answer Date Recorded Getting School Help Needed Not on file 08/13 Sex and Gender Information Value Date Recorded Sex Assigned at Not on file Legal Sex Male 11:03 AM CELLOPHANE PRESS OPERATOR Gender Identity Not on file Sexual Orientation Not on file Plan of Treatment Health Maintenance Due Date Last Done Comments Depression Screening 1960 Hepatitis C Screening 1960 Prostate Cancer Screening-PSA 1960 Hepatitis B Screening 1978 Regular Well Visit/Exam 18-64 1978 Zoster Vaccine (1 of 2) 2010 Colon Cancer Screening-Colonoscopy 07/22/2022 07/22/2012 Covid-19 Vaccine ( season) 2024 09/18/2021, 01/21/2021, 12/24/2020 Influenza Vaccine (Season Ended) 2025 06/19/2023, 06/06/2022, 06/19/2021, Additional history exists DTaP/Tdap/Td Vaccine (2 - Td or Tdap) 05/05/2025 05/05/2015 Pneumococcal vaccine <65 Aged Out 03/22/2015 No longer eligible based on patient's age to complete this topic Procedures Procedure Name Priority Date/Time Associated Diagnosis Comments COLONOSCOPY 07/22/2012 12:00 AM CELLOPHANE PRESS OPERATOR from Last 3 Months or Most Recently Relevant to Health Maintenance Results * COLONOSCOPY (07/22/2012 12:00 AM CELLOPHANE PRESS OPERATOR) Anatomical Region Laterality Modality Other Narrative 07/22/2012 12:00 AM CELLOPHANE PRESS OPERATOR Ordered by an unspecified provider. Procedure Note Provider, MD Hetal - 07/22/2012 12:00 AM CST PROCEDURE REPORT Patient: NOLBERTO CAI Account: [id number] Room No: : 1960 Patient Type: SDS Attend.: Fernando Schmitz M.D. Admit Date: 07/22/2012 Dict.: Fernando Schmitz M.D. Disch. Date: NAME OF PROCEDURE: Colonoscopy with polypectomy. INDICATION: Screening for colon cancer. DATE OF PROCEDURE: 07/22/2012. PRIMARY CARE PHYSICIAN: Dr. Daniel Parker. BRIEF HISTORY AND PHYSICAL: The patient is [...] up with primary care physician as scheduled. Fernando Schmitz M.D. JIM/keaton TD: 07/22/2012 14:37 CC: Dr. Daniel Parker Authenticated by Fernando Schmitz MD On 08/01/2012 12:28:00 PM Historical Provider ENDOSCOPY PROCEDURES Wanda l Result from Last 3 Months or Most Recently Relevant to Health Maintenance Insurance MEDICARE [facility] Care Teams Catalyst Operator Relationship Specialty Start Date End Date Nolan Parker MD [address] [place] [address] PCP - General Family Medicine 07/11/23
--- OUTSIDE RECORDS SUMMARY | 2024-11-26 12:08 | XMS_ITS | Data Portability ---
Author Organization [facility], [address] [place] [address] Neurology ([place]) Address [address] [place] [address] Care Team Providers Care Research Dietitian Name Role Phone LILY CERDA Primary Care Provider Assessment Encounter Date Assessment Date Assessment LastModified by Organization Details LastModified Time 10/20/2024 10/20/2024 History: Chidi cummins s a 64-year-old male who returns for follow-up of his left knee. He is still having left and right knee pain. The left is worse than the right. We did Euflexxa injections on his knee approximately 2 years ago. These worked tremendously well. He has not done physical therapy in a long time. He did see a neurologist about 2 years ago and he was diagnosed with a stroke. He also has had trouble sleeping primarily because of the pain in his knee. He was started on amitriptyline which is really helped. He also has a sciatic nerve issue which radiates down both legs and he has to sit forward on chairs. He says the pain in his left knee is about a 10 out of 10 and the right knee is an 8 out of 10. He says the right knee grinds. The left knee is swollen. He says that walking does make it significantly worse as well as putting his shoes and socks on and doing stairs. Physical examination: He walks with an antalgic gait. He has about 1 to 120 degrees range of motion of the left knee compared to 0 to 125 degrees range of motion of the right knee. He has no varus or valgus laxity of the bilateral knees. Pain along the medial joint line bilaterally. His ankle dorsiflexion is 5 out of 5 bilaterally. X-rays of the bilateral knees were independently reviewed from [facility] and show severe left knee medial compartment osteoarthritis with moderate to severe right knee medial compartment osteoarthritis. Assessment: 1. Severe left knee medial compartment osteoarthritis. 2. Moderate to severe right knee medial compartment osteoarthritis. 3. History of stroke. Plan: Clinical and radiographic findings were discussed with the patient. I recommended conservative management of his bilateral knees with repeat Euflexxa injection series. I did recommend consideration of a knee replacement in the future. I would get approval for the injections prior to proceeding. Not available 10/20/2024 11:22:53 11/03/2024 11/03/2024 History: Chidi Jameson is here for follow-up of his bilateral knees. He is having significant pain in the left knee more so than the right knee. He says that he would like to have his left knee replaced if possible. He like to have the Euflexxa injections for his right knee. He denies any fevers or chills. He says that he did have a stroke in the past. He is on Eliquis apparently. He says the stroke was not much of anything though according to his regular doctor. He does have a history of COPD and sleep apnea. Physical examination: He has pain along the medial joint line of the bilateral knees. No varus valgus laxity bilateral knees. He has about 2 to 115 degrees range of motion of the left knee compared to 0 to 120 degrees range of motion of the right knee. X-rays of the bilateral knees were independently reviewed from [facility] and show severe Assessment: 1. Left knee [id number] medial compartment osteoarthritis. 2. Right knee moderately severe medial compartment osteoarthritis. 3. History of stroke. 4. Mild COPD and sleep apnea. 5. Eliquis use. Plan: Clinical and radiographic findings were discussed with patient. We discussed further conservative versus surgical treatment options with regard to the left knee. We discussed injections, physical therapy, medications and knee replacement. We discussed a left total knee arthroplasty. The risks, benefits and alternatives of surgery including but not limited to infection, wound healing problems, stiffness of the knee, continued knee pain, DVT, pulmonary embolism, , fracture, patellar dislocation, hemarthrosis, loosening of the prosthesis, need for revision and no complications were discussed in detail. The patient was aware of the risks, express understanding, and wishes to proceed. We would have him stop Eliquis prior to the surgery. Will check to see if we can do this in [place] with the anesthesia provider. We will seek authorization for the Euflexxa for the right knee. Not available 11/03/2024 12:16:50 11/13/2024 11/13/2024 HISTORY: The pat ient comes in today for follow-up of knee pain. We have discussed viscosupplementation, including the risks and benefits of the procedure, the risks and benefits of alternative procedures, as well as the possible consequences of not undergoing the procedure. The patient verbalized understanding and desires to proceed. After informed consent was obtained, the right knee was prepped and draped in the usual sterile fashion. From an anterolateral approach, [ 2 ml of Euflexxa was injected x1 without difficulty. The patient tolerated the injection well. The patient was counseled regarding the possible risk of post-injection inflammatory reaction and instructed to call if having any problems. Appropriate aftercare instructions following intraarticular viscosupplementation of the knee were provided and patient verbalized understanding of these instructions. The patient will return next week for the second injection. DIAGNOSIS: Osteoarthritis. PLAN: Patient is planning to get a left total knee arthroplasty pending scheduling and insurance as well as clearance. He will come back next week for the second injection. bbb Not available 11/13/2024 13:22:57 11/20/2024 11/20/2024 HISTORY: The pat ient comes in today for second Euflexxa injection. There has not been any sign of post-injection inflammatory response following the first injection approximately 1 week ago. PHYSICAL EXAMINATION: Unchanged. IMPRESSION: Degenerative arthritis right knee. PLAN: We again discussed viscosupplementation, including the risks and benefits of the procedure, the risks and benefits of alternative procedures, as well as the possible consequences of not undergoing the procedure. The patient verbalized understanding and desires to proceed. After informed consent was obtained, the right knee was prepped in the usual sterile fashion. From an anterolateral approach, 2 ml of Euflexxa was injected x1 without difficulty. The patient tolerated the injection well. The patient was again counseled regarding the possible risk of post-injection inflammatory reaction and instructed to call if having any problems. Appropriate aftercare instructions following intraarticular viscosupplementation of the knee were provided and patient verbalized understanding of these instructions. The patient will return next week for the third injection. DIAGNOSIS: Osteoarthritis. Not available 11/20/2024 13:33:49 Plan of Treatment Reminders Order Date Submit Date Provider Last Modified By Organization Details Last Modified Time Details Appointments PSA Establish ed 15.EST 2024 09:30A M Cinda Ray Not available Not available Not available PSA Establish ed 10.EST 2024 09:30A M Dr. Tom Ulloa Not available Not available Not available Lab None recorded. Referral None recorded. Procedures None recorded. Surgeries None recorded. Imaging None recorded. Medication Orders None recorded. Patient TargetsNo targets recorded. Patient InstructionsNo instructions recorded. Reason for Referral None Reported. Results Created Date Observation Date Name Description Value Unit Range Abnormal Flag Note LastModifiedBy Organization Detail LastModifiedTime 10/23/19 25 XR, knee, 4 or more view No observ ation record ed. [address] (Radiology) [address] [place], [address], 10/23/2024 12:53:24 Result Notes None recorded. Problems Name Problem SNOMED Code Status Onset Date Resolution Date Notes Provider Name and Address Organization Details Recorded Time Osteoarthri tis of left knee joint 5689307276670 09 Active 2024 Tom Ulloa MD [address] [place] [address], [phone], [facility] 5 00:23:19 Osteoarthri tis of right knee joint 0121184365529 00 Active 2024 Tom Ulloa MD [address] [place] [address], [address], [facility] 5 08:42:08 Problem Notes None recorded. Procedures Surgical History None recorded. Imaging Results Imaging Date Name Status LastModified by Organiz ation Details LastModified Time 10/23/2024 XR, knee, 4 or more view completed [address] (Radiology) [address] [place], [address], 10/23/2024 12:53:24 Procedure Notes None recorded. Medical Equipment None Reported. Vitals Date Recorded Body height Body mass index (BMI) Body weight Heart rate Oxygen saturation Oxygen saturation in Arterial blood by Pulse oximetry Systolic blood pressure Diastolic blood pressure Provider Name and Address Organization Details Last Updated DateTime 175.26 cm 36.9 kg/m2 741941. 09 g 85 /min 95 % 95 % 120 mm[Hg] 77 mm[Hg] [facility] 5 10:57:32 Date Recorded Body height Body mass index (BMI) Body weight Heart rate Oxygen saturation Oxygen saturation in Arterial blood by Pulse oximetry Systolic blood pressure Diastolic blood pressure Provider Name and Address Organization Details Last Updated DateTime 175.26 cm 36.9 kg/m2 115007. 09 g 87 /min 96 % 96 % 109 mm[Hg] 73 mm[Hg] [facility] 5 11:47:55 Date Recorded Body height Provider Name an d Address Organization Details Last Updated DateTime 11/20/2024 175.26 cm Radha Navarro [facility] 11/20/2024 10:35:15 Social History None recorded. Functional Status None recorded. Mental Status None recorded. Family History Nothing Reported. Medical History No medical history recorded. Past Encounters Encounter ID Performer Location Encounter Start Date Encounter Closed Date Diagnosis/Indication Diagnosis SNOMED-CT Code Diagnosis ICD10 Code Diagnosis Note [id number] MD [facility] [place] [address] 10/20/2024 10:29:38 10/20/2024 11:23:55 Osteoarthritis of left knee joint 9759490665 70554 M17.12 Osteoarthr itis of right knee joint 5815805006 74078 M17.11 [id number] MD [facility] [place] [address] 11/03/2024 11:11:14 11/03/2024 12:11:41 Osteoarthritis of left knee joint 2472300396 69835 M17.12 Osteoarthr itis of right knee joint 9726023473 64754 M17.11 [id number] Cinda Pathak PA-C [facility] [address] [facility] [place] [address] 11/13/2024 09:49:30 11/15/2024 05:57:20 Osteoarthritis of right knee joint 3293592286 59749 M17.11 [id number] Cinda Pathak PA-C [facility] [address] [facility] [place] [address] 11/20/2024 10:06:33 11/21/2024 06:55:22 Osteoarthritis of right knee joint 6678911806 07318 M17.11 Health Concerns Section Related Observation LastModified by Organization Detai ls LastModified Time None Recorded Concern Status LastModified by Organization Details LastModified Time None Recorded Advance Directives Directive None Recorded Payers Encounter Date Sequence Insurance Name Policy Number Policy Weinstein Covered Member ID Weinstein Member ID Guarantor Name 10/20/2024 1 [place] Trevon L Calcari [id number] Christopher L Calcari 10/20/2024 2 [place] [facility] PUBLIC AID Trevon L Calcari [id number] Christopher L Calcari 11/03/2024 1 [place] Trevon L Calcari [id number] Christopher L Calcari 11/03/2024 2 [place] [facility] Trevon L Calcari [id number] Christopher L Calcari 11/13/2024 1 [place] Trevon L Calcari [id number] Christopher L Calcari 11/13/2024 2 [place] [facility] Trevon L Calcari [id number] Christopher L Calcari 11/20/2024 1 [place] Trevon L Calcari [id number] Christopher L Calcari 11/20/2024 2 [place] Trevon L Calcari [id number] Christopher L Calcari
--- OUTSIDE RECORDS SUMMARY | 2024-11-26 12:08 | XMS_ITS | Encounter Summary ---
Author Organization [facility] Address [facility] [place] [address] Care Team Providers Care Industrial Design Engineer Name Role Phone Nolan Parker MD Primary Care Provider [phone] Dony Alba MD Unavailable Unavailable Eliz Batista- Unavailable Unavail able Jericho Rasmussen MD Unavailable [phone] Isaura Rivera APRN, NP-C Unavailable [phone] Ovi Jasmine MD Unavailable Aiyana Darling MD Unavailable Gato Steward MD Unavailable [phone] Encounter Details Date Type Department Care Team (Late Contact Info) Description 11/09/2015 Abstract [facility] AT [address] [place] [address] Dony Alba MD Social History Tobacco Use Types Packs/Day Years Used Date Smoking Tobacco: Smoker, Current Status Unknown Cigarettes 0.3 35 Alcohol Use Standard Drinks/Week Comments No 0 [...] Description 12/17/2024 12:30 PM CDT Office Visit [facility] [address] Aiyana Darling MD [address] [place], [place] [address] 02/08/2025 9:00 AM CDT Appointment [address] [place] [address] Aiyana Darling MD [address] [place] [address] 02/22/2025 3:30 PM CDT Office Visit [facility] [place] [address] Aiyana Darling MD [address] [place] [address] documented as of this encounter Visit Diagnoses Not on filedocumented in this encounter Additional Health Concerns Infection Onset Date Last Indicated Resolved Time 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 07/16/2017 documented as of this encounter Care Teams Industrial Design Engineer Relationship Specialty Start Date End Date Nolan Parker MD [address] [place] [address] PCP - General FAMILY PRACTICE 07/10/16 Dony Alba MD [address] [place] [address] CARDIOVASCULAR DISEASE 07/30/16 02/26/18 Eliz Batista AGPCNP- [address] [place] [address] NURSE PRACTITIONER 07/30/16 02/26/18 Jericho Rasmussen MD [address] [place] [address] HF Filter Tender CARDIOVASCULAR DISEASE 02/27/18 3 Isaura Rivera APRN, SHIP'S CAPTAIN-C [address] [place] [address] Vascular/Filter Tender CARDIOVASCULAR DISEASE 08/13/18 02/17/23 Ovi Jasmine MD [address] [place] [address] Consulting Physician INTERVENTIONAL CARDIOLOGY 06/15/19 02/17/23 Aiyana Darling MD [address] [place] [address] Consulting Physician CARDIOVASCULAR DISEASE 02/15/23 Gato Steward MD [address] [place] [address] OTOLARYNGOLOGY 08/20/24 documented as of this encounter
--- OUTSIDE RECORDS SUMMARY | 2024-11-26 12:08 | XMS_ITS | Encounter Summary ---
Author Organization [facility] Address [facility] [place] [address] Care Team Providers Care Water Pipe Installer Name Role Phone Nolan Parker MD Primary Care Provider [phone] Dony Alba MD Unavailable Unavailable Eliz Batista- Unavailable Unavail able Jericho Rasmussen MD Unavailable [phone] Isaura Rivera APRN, NP-C Unavailable [phone] Ovi Jasmine MD Unavailable Aiyana Darling MD Unavailable Gato Steward MD Unavailable [phone] Encounter Details Date Type Department Care Team (Late Contact Info) Description 11/09/2017 Abstract [facility] [address] [place] [address] , Generic Conversion, Social History Tobacco Use Types Packs/Day Years [...] Description 12/17/2024 12:30 PM CDT Office Visit [facility] [address] [address] Aiyana Darling MD [address] [place] [address] 02/08/2025 9:00 AM CDT Appointment [address] [place] [address] Aiyana Darling MD [address] [place] [address] 02/22/2025 3:30 PM CDT Office Visit [facility] [place] [address] Aiyana Darling MD [address] [place] [address] documented as of this encounter Visit Diagnoses Not on filedocumented in this encounter Additional Health Concerns Infection Onset Date Last Indicated Resolved Time 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 07/16/2017 documented as of this encounter Care Teams Water Pipe Installer Relationship Specialty Start Date End Date Nolan Parker MD [address] [place] [address] PCP - General FAMILY PRACTICE 07/10/16 Dony Alba MD [address] [place] [address] CARDIOVASCULAR DISEASE 07/30/16 02/26/18 Eliz Batista AGPCNP- [address] [place] [address] NURSE PRACTITIONER 07/30/16 02/26/18 Jericho Rasmussen MD [address] [place] [address] HF Veneer Taping Machine Offbearer CARDIOVASCULAR DISEASE 02/27/18 6 3 Isaura Rivera APRN, COMMUNICATIONS SENIOR ASSOCIATE-C [address] [place] [address] Vascular/Veneer Taping Machine Offbearer CARDIOVASCULAR DISEASE 08/13/18 02/17/23 Ovi Jasmine MD [address] [place] [address] Consulting Physician INTERVENTIONAL CARDIOLOGY 06/15/19 02/17/23 Aiyana Darling MD [address] [place] [address] Consulting Physician CARDIOVASCULAR DISEASE 02/15/23 Gato Steward MD [address] [place] [address] OTOLARYNGOLOGY 08/20/24 documented as of this encounter
--- OUTSIDE RECORDS SUMMARY | 2024-11-26 12:08 | XMS_ITS | Encounter Summary ---
Author Organization [facility] Address [facility] [place] [address] Care Team Providers Care President [employer] Name Role Phone Nolan Parker MD Primary Care Provider [phone] Dony Alba MD Unavailable Unavailable Eliz Batista- Unavailable Unavail able Jericho Rasmussen MD Unavailable [phone] Isaura Rivera APRN, NP-C Unavailable [phone] Ovi Jasmine MD Unavailable Aiyana Darling MD Unavailable Gato Steward MD Unavailable [phone] Encounter Details Date Type Department Care Team (Late Contact Info) Description 08/13/2017 Abstract [facility] [address] [place] [phone] Dony Alba MD Social History Tobacco Use Types Packs/Day Years Used Date Smoking Tobacco: Smoker, Current Status Unknown Cigarettes 0.3 35 Smokeless Tobacco: Never Alcohol Use Standard Drinks/Week [...] Description 12/17/2024 12:30 PM CDT Office Visit [facility] [phone] Aiyana Darling MD [address] [place], [place] [phone] 02/08/2025 9:[address] [address] [place] [address] Aiyana Darling MD [address] [place], [place] [address] 02/22/2025 3:30 PM CDT Office Visit [facility] [address] [facility] [address] [place] [phone] Aiyana Darling MD [address] [place], [place] [address] documented as of this encounter Procedures Procedure Name Priority Date/Time Associated Diagnosis Comments CMP (ABSTRACTED LAB) Routine 08/08/2017 documented in this encounter Results * (ABNORMAL) CMP (ABSTRACTED LAB) (08/08/2017) SODIUM S/P/B 137 POTASSIUM S/P/B 4.3 CHLORIDE S/P/B 103 CO2 20 BUN 14 CREATININE S/P/B 0.88 0.7 - 1.3 EGFR AFR. AMER. 111 EGFR NON-AFR. AMER. 95(A) <=90 CALCIUM S/P/B 9.2 GLUCOSE 131 mg/dL TOTAL PROTEIN S/P/B 7.8 ALBUMIN S/P/B 4.5 3.5 - 5.0 AST 38 ALT 54 ALKALINE PHOSPHATASE S/P/B 68 BILIRUBIN TOTAL S/P/B 0.6 08/08/2017 us Doc [facility] Abstract LAB-OUTSIDE/ABSTRACTED Final Result documented in this encounter Visit Diagnoses Not on filedocumented in this encounter Additional Health Concerns Infection Onset Date Last Indicated Resolved Time 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 07/16/2017 documented as of this encounter Care Teams President [employer] Relationship Specialty Start Date End Date Nolan Parker MD [address] [place] [address] PCP - General FAMILY PRACTICE 07/10/16 Dony Alba MD [address] [place] [address] CARDIOVASCULAR DISEASE 07/30/16 02/26/18 [facility] [address] [place] [address] NURSE PRACTITIONER 07/30/16 02/26/18 Jericho Rasmussen MD [address] [place] [address] HF [employer] Contractor CARDIOVASCULAR DISEASE 02/27/18 3 Isaura Rivera APRN, SOCIAL MEDIA MARKETING SPECIALIST-C [address] [place] [address] Vascular/[employer] Contractor CARDIOVASCULAR DISEASE 08/13/18 02/17/23 Ovi Jasmine MD [address] [place] [phone] Consulting Physician INTERVENTIONAL CARDIOLOGY 06/15/19 02/17/23 Aiyana Darling MD [address] [place] [address] Consulting Physician CARDIOVASCULAR DISEASE 02/15/23 Gato Steward MD [address] [place] [address] OTOLARYNGOLOGY 08/20/24 documented as of this encounter
--- OUTSIDE RECORDS SUMMARY | 2024-11-26 12:08 | XMS_ITS | Encounter Summary ---
Author Organization [facility] Address [facility] [place] [address] Care Team Providers Care Certified Registered Dental Assistant Name Role Phone Nolan Parker MD Primary Care Provider [phone] Dony Alba MD Unavailable Unavailable Eliz Batista- Unavailable Unavail able Jericho Rasmussen MD Unavailable [phone] Isaura Rivera APRN, NP-C Unavailable [phone] Ovi Jasmine MD Unavailable Aiyana Darling MD Unavailable Gato Steward MD Unavailable [phone] Encounter Details Date Type Department Care Team (Late st Contact Info) Description 07/17/2017 Abstract [facility] [address] [place] [address] Dony Alba MD Social History Tobacco Use [...] Encounters Date Type Department Care Team (Late st Contact Info) Description 12/17/2024 12:30 PM CDT Office Visit [facility] [phone] Aiyana Darling MD [address] [place], [place] [address] 02/08/2025 9:[address] [facility] [address] [place] [address] Aiyana Darling MD [address] [place] [address] 02/22/2025 3:30 PM CDT Office Visit [facility] [address] [place] [address] [place] [phone] Aiyana Darling MD [address] [place] [address] documented as of this encounter Procedures Procedure Name Priority Date/Time Associated Diagnosis Comments CMP (ABSTRACTED LAB) Routine 05/14/2017 documented in this encounter Results * (ABNORMAL) CMP (ABSTRACTED LAB) (05/14/2017) SODIUM S/P/B 135 POTASSIUM S/P/B 4.2 CHLORIDE S/P/B 104 CO2 21 BUN 14 CREATININE S/P/B 0.85 0.7 - 1.3 EGFR AFR. AMER. 112 EGFR NON-AFR. AMER. 97(A) <=90 CALCIUM S/P/B 8.9 GLUCOSE 214 mg/dL TOTAL PROTEIN S/P/B 6.9 ALBUMIN S/P/B 4.0 3.5 - 5.0 AST 31 ALT 47 ALKALINE PHOSPHATASE S/P/B 55 BILIRUBIN TOTAL S/P/B 0.4 05/14/2017 us Doc [facility] Abstract LAB-OUTSIDE/ABSTRACTED Final Result documented in this encounter Visit Diagnoses Not on filedocumented in this encounter Additional Health Concerns Infection Onset Date Last Indicated Resolved Time 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 07/16/2017 documented as of this encounter Care Teams Certified Registered Dental Assistant Relationship Specialty Start Date End Date Nolan Parker MD [address] [place] [address] PCP - General FAMILY PRACTICE 07/10/16 Dony Alba MD [address] [place] [address] CARDIOVASCULAR DISEASE 07/30/16 02/26/18 [facility] [address] [place] [address] NURSE PRACTITIONER 07/30/16 02/26/18 Jericho Rasmussen MD [address] [place] [address] HF Manager Meat CARDIOVASCULAR DISEASE 02/27/18 3 Isaura Rivera APRN, STRADDLE BUGGY OPERATOR-C [address] [place] [address] Vascular/Manager Meat CARDIOVASCULAR DISEASE 08/13/18 02/17/23 Ovi Jasmine MD [address] [place] [phone] Consulting Physician INTERVENTIONAL CARDIOLOGY 06/15/19 02/17/23 Aiyana Darling MD [address] [place] [address] Consulting Physician CARDIOVASCULAR DISEASE 02/15/23 Gato Steward MD [address] [place] [address] OTOLARYNGOLOGY 08/20/24 documented as of this encounter
--- OUTSIDE RECORDS SUMMARY | 2024-11-26 12:08 | XMS_ITS | Clinical Summary ---
Author Organization [facility] Address [address] [place] [address] Care Team Providers Care Retail [employer] Pro Name Role Phone Nolan Parker MD Primary Care Provider [phone] Aiyana Darling MD Unavailable Gato Steward MD Unavailable [phone] Allergies Active Allergy Reactions Criticality Noted Date Comments Nickel Rash Low 07/31/2016 Medications ALPRAZolam 0.5 MG tablet Take 1 tablet (0.5 mg total) by mouth 3 (three) times daily. 2 Active amlodipine 10 MG tablet Take 1 tablet (10 mg total) by mouth daily. 2 Active apixaban (ELIQUIS) 5 MG tablet Take 1 tablet (5 mg total) by mouth 2 (two) times daily. 5 Active metFORMIN 500 MG 24 hr tablet Take 2 tablets (1,000 mg total) by mouth 2 (two) times daily. 6 Active pravastatin 40 MG tablet Take 1 tablet (40 mg total) by mouth daily. Active glimepiride 4 MG tablet Take 1 tablet (4 mg total) by mouth every morning before breakfast. Active ONE TOUCH ULTRA TEST STRIPS test strip daily. test blood sugars 3 8 Active hydrocodone-ebony taminophen 7.5-325 MG tablet Take by mouth every 6 (six) hours as needed for Pain. Active LISINOPRIL 40 MG tablet TAKE 1 TABLET BY MOUTH EVERY DAY 90 tablet 2 0 Active furosemide 40 MG tablet Take 1 tablet (40 mg total) by mouth daily. 30 tablet 6 0 Active Blood Pressure Monitoring Kit 1 kit by Does not apply route daily. Monitor blood pressure 1-2 times daily 1 kit 1 Active Blood Pressure Kit Monitor blood pressure 1-2 times daily. Diagnosis: I10 1 kit 1 Active INVOKANA 300 MG tablet 1 Active OZEMPIC 0.25/0.5 MG/DOSE 2 MG/1.5ML injection (PEN) INJECT 0.5 MG BY SUBCUTANEOUS ROUTE ONCE WEEKLY FOR 4 WEEKS 2 Active metoprolol tartrate (LOPRESSOR) 50 MG tablet take 1 tablet by mouth twice a day 180 tablet 3 4 Active Active Problems Problem Noted Date Diagnosed Date Mixed hyperlipidemia 08/13/2018 Chronic diastolic heart failure ([facility] ) 07/31/2016 Paroxysmal atrial fibrillation ([facility]) 07/31/2016 Supraventricular tachycardia ([facility]) 6 Chest pain 07/31/2016 Essential hypertension 07/31/2016 Recurrent major depressive disorder 07/31/2016 Personal history of nicotine dependence 07/31/20 16 Generalized anxiety disorder 07/31/2016 Morbid obesity 07/31/2016 Chronic obstructive pulmonar y disease, unspecified COPD type ([facility]) 07/31/2016 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 Lumbar herniated disc 04/28/2013 Encounters Date Type Department Care Team Description 11/20/2024 [facility]phone [facility] [address] [place] [address] Aiyana Darling MD Appointment Request from Last 3 Months Immunizations Name Administration Dates Next Due MODERNA COVID-19 (12+) MRNA, LNP-S, PF, 100 MCG/ 0.5 ML DOSE 01/21/2021,12/24/2020 Family History Medical History Relation Comments Heart Attack Brother 1 COPD Father Stroke Father Heart Attack Mother Coronary artery disease Other Family h istory is positive for premature coronary heart disease Relation Status Comments Brother 1 Alive Brother 2 Alive Father Maternal Grandfather (Age 65) Maternal Grandmother (Age 63) Mother Other Other Paternal Grandfather (Age 58) Paternal Grandmother (Age 78) Sister 1 Alive Sister 2 Alive Social History Tobacco Use Types Packs/Day Years Used Date Smoking Tobacco: Former Cigarettes 0 01/27/1982 - 01/27/2017 Smokeless Tobacco: Never Tobacco Cessation:Counseling Given: Not Answered Alcohol Use Standard Drinks/Week Comments No 0 (1 standard drink = 0.6 oz pur e alcohol) Sex and Gender Information Value Date Recorded Sex Assigned at Not on file Legal Sex Male 9:46 PM CDT Gender Identity Not on file Sexual Orientation Not on file Occupation Industry Job Start Date Job End Date disabled Not on file Not on file Not on file Last Filed Vital Signs Vital Sign Reading Time Taken Comments Blood Pressure 120/79 08/20/2024 3:43 PM [employer]OR[employer] CLERK Pulse 98 08/20/2024 3:43 PM [employer] STOR[employer] CLERK Temperature 36.1 C (97 F) 03/11/2020 10:27 AM CDT Respiratory Rate 20 08/20/2024 3:43 PM SPACE AND STORAGE CLERK Oxygen Saturation 95% 08/20/2024 3:43 PM [employer] AND STORAGE CLERK Inhaled Oxygen Concentration - - Weight 116.6 kg (257 lb) 08/20/2024 3:43 PM SP[employer] AND STORAGE CLERK Height 168.9 cm (5' 6.5 ) 08/20/2024 3:43 PM SPACE AND STORAGE CLERK Body Mass Index 40.86 08/20/2024 3:43 PM SPACE AND STORAGE CLERK Plan of Treatment Upcoming Encounters Date Type Department Care Team (Late st Contact Info) Description 12/17/2024 12:30 PM CDT [facility] [phone] [place] [phone] Aiyana Darling MD [address] [place], [place] [address] 02/08/2025 9:[address] [facility] [address] [place] [address] Aiyana Darling MD [address] [place], [place] [phone] 02/22/2025 3:30 PM CDT Office Visit [facility] [place] [address] Aiyana Darling MD [address] [place] [address] Health Maintenance Due Date Last Done Comments Colorectal Cancer Screening Colonoscopy (10 Years) 1960 Kidney Health Evaluation 1960 Annual Physical 1963 Diabetes: Retinopathy Eye Exam 1978 Hepatitis C 1978 Zoster Vaccines (1 of 2) 2010 Pneumococcal Vaccine: Pediatrics (0 to 5 Years) and At-Risk Patients (6 to 64 Years) (2 of 2 - PCV) 03/22/2016 03/22/2015 Hemoglobin A1C 01/24/2022 07/26/2021 Lipid Panel 07/26/2022 07/26/2021, 07/26, 08/08/2017, Additional history exists DTaP, Tdap and Td Vaccines (2 - Td or Tdap) 05/05/2025 05/05/2015 RSV Immunization or 60+ Years Completed 07/10/2023 COVID-19 Vaccine Completed 06/25/2024, , 01/21/2021, Additional history exists Meningococcal B Vaccine Aged Out No l onger eligible based on patient's age to complete this topic Meningococcal Vaccine Aged Out No silvana rosemarie eligible based on patient's age to complete this topic RSV Immunizations Under 20 Months Aged Out No longer eligible based on patient's age to complete this topic Procedures Procedure Name Priority Date/Time Associated Diagnosis Comments LIPID PROFILE (ABSTRACTED) Routine 07/26/2021 HEMOGLOBIN, GLYCOSYLATED Routine 07/26/2021 from Last 3 Months or Most Recently Relevant to Health Maintenance Results * LIPID PROFILE (ABSTRACTED) (07/26/2021) CHOLESTEROL 127 TRIGLYCERIDES 221 HDL 31 LDL (CALCULATED) 68 CHOL/HDL RATIO 4.1 NON HDL CHOLESTEROL 96 07/26/2021 Nolan Parker MD LAB-OUTSIDE/ABSTRACTED Final Result * HEMOGLOBIN, GLYCOSYLATED (07/26/2021) HGB A1C 8.6 % 07/26/2021 Nolan Parker MD LABORATORY Final Result from Last 3 Months or Most Recently Relevant to Health Maintenance Additional Health Concerns Infection Onset Date Last Indicated 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 07/16/2017 Insurance MEDICAID MEDICARE MEDICARE MEDICAID Care Teams [employer] Pro Relationship Specialty Start Date End Date Nolan Parker MD [address] [place] [address] PCP - General FAMILY PRACTICE 07/10/16 Aiyana Darling MD [address] [place] [address] Consulting Physician CARDIOVASCULAR DISEASE 02/15/23 Gato Steward MD [address] [place] [address] OTOLARYNGOLOGY 08/20/24
== END 2024-11-26 11:45 | disposition home or self-care (01) ==
LOC: CHSED 11:29
PROVIDERS: Emergency Provider Emergency Medicine; PCP Family Medicine
DX: S30.861A Insect bite (nonvenomous) of abdominal wall, initial encounter (principal); L03.311 Cellulitis of abdominal wall; E11.9 Type 2 diabetes mellitus without complications; E78.5 Hyperlipidemia, unspecified; I10 Essential (primary) hypertension; I48.91 Unspecified atrial fibrillation; Z87.891 Personal history of nicotine dependence; Z23 Encounter for immunization; W57.XXXA Bitten or stung by nonvenomous insect and other nonvenomous arthropods, initial encounter
CPT/HCPCS: 90471; 90715; 99283

== ENCOUNTER 2024-12-29 12:34 | Outpatient (CLI) | payer MEDICARE, MEDICAID, SELFPAY ==
--- OUTSIDE RECORDS SUMMARY | 2024-12-29 12:42 | XMS_ITS | Referral Summary ---
Author Organization [facility] Address [address] [place] [address] Care Team Providers Care Corrections Specialist Name Role Phone Nolan Parker MD Primary Care Provide r Allergies No known active allergies Social History Tobacco Use Types Packs/Day Years Used Date Smoking Tobacco: Never Assessed Personal Safety Answer Date Recorded Getting School Help Needed Not on file 08/13 Sex and Gender Information Value Date Recorded Sex Assigned at Not on file Legal Sex Male 11:03 AM CHIPPER FEEDER Gender Identity Not on file Sexual Orientation Not on file Plan of Treatment Not on file Procedures Procedure Name Priority Date/Time Associated Diagnosis Comments COLONOSCOPY 07/22/2012 12:00 AM CHIPPER FEEDER from Last 3 Months or Most Recently Relevant to Health Maintenance Results * COLONOSCOPY (07/22/2012 12:00 AM CHIPPER FEEDER) Anatomical Region Laterality Modality Other Narrative 07/22/2012 12:00 AM CHIPPER FEEDER Ordered by an unspecified provider. Procedure Note Provider, MD Hetal - 07/22/2012 12:00 AM CST PROCEDURE REPORT Patient: NOLBERTO CAI Account: [id number] Room No: : 1960 Patient Type: [facility] Attend.: Fernando Schmitz M.D. Admit Date: [...] Health Maintenance Insurance MEDICARE IDPA Care Teams Corrections Specialist Relationship Specialty Start Date End Date Nolan Parker MD [address] [place] [address] PCP - General Family Medicine 07/11/23
--- OUTSIDE RECORDS SUMMARY | 2024-12-29 12:42 | XMS_ITS | Data Portability ---
Author Organization [facility], [address] [place] [address] Neurology ([place]) Address [address] [place] [address] Care Team Providers Care Research Intern Name Role Phone LILY CERDA Primary Care Provider Assessment Encounter Date Assessment Date Assessment LastModified by Organization Details LastModified Time 11/03/2024 11/03/2024 History: Chidi Jameson is here [...] the bilateral knees were independently reviewed from [facility] and show severe Assessment: 1. Left knee evcj-jd-epdj medial compartment osteoarthritis. 2. Right knee moderately [...] see if we can do this in [place] with the anesthesia provider. We will seek [...] injection. DIAGNOSIS: Osteoarthritis. Not available 11/20/2024 13:33:49 11/27/2024 11/27/2024 HISTORY: The pat ient comes in today for third Euflexxa injection. There has not been any sign of post-injection inflammatory response following the first two injections. PHYSICAL EXAMINATION: Unchanged. IMPRESSION: Degenerative arthritis right [...] an anterolateral approach, 2 ml of Euflexxa as injected x1 without difficulty. The patient tolerated the injection well. The patient was again counseled regarding the possible risk of post-injection inflammatory reaction and instructed to call if having any problems. Appropriate aftercare instructions following intraarticular viscosupplementation of the knee were provided and patient verbalized understanding of these instructions. Patient was instructed to call in 4-5 weeks for an update on their clinical progress and knows we remain available in the interim should any new issues or concerns arise. DIAGNOSIS: Osteoarthritis. [facility] Not available 11/27/2024 12:52:17 12/22/2024 12/22/2024 History: Chidi naidu for follow-up of his left knee. He is ready to proceed with a left total knee arthroplasty in 9 days. He is on Ozempic. His last dose is today. He also has a history of a blood clot from sitting too long 1 day. He is on Eliquis for this. He does have some mild COPD. He has some diabetes. He says his last hemoglobin A1c was 7.0. He has been getting right knee Euflexxa injection series. He has failed conservative treatment on his left knee. Physical examination: He has pain along medial joint line of the left and right knee. He has no varus or valgus laxity of the bilateral knees. He has mild effusion of the bilateral knees. He has 0 to 120 degrees range of motion bilaterally. There is pain with range of motion of the bilateral knees. X-rays of the left knee and trivalent views were independently reviewed from [facility] and show severe left knee lzub-sk-heuw medial compartment osteoarthritis with 5.8 degrees of mechanicals anatomic axis difference. Assessment: 1. Left knee severe tyzi-ct-ifrg medial compartment osteoarthritis. 2. Right knee osteoarthritis currently getting Euflexxa. 3. Mild COPD. 4. History of diabetes mellitus on Ozempic. 5. History of DVT on Eliquis taking 2.5 mg twice a day. Plan: Clinical and radiographic findings were discussed [...] risks, express understanding, and wishes to proceed. Resume Eliquis the day after surgery. Outpatient physical therapy. Attempted outpatient surgery next week. He was cleared by his hoop maker machine Dr. Darling. He sees his primary care physician tomorrow. Not available 12/22/2024 11:06:37 Plan of Treatment Reminders Order Date Submit Date Provider Last Modified By Organization Details Last Modified Time Details Appointments Nurse Surgery Block 15.SURG 2024 07:45A M Dr. Tom Ulloa Not available Not available Not available Post Op 10.EST 2024 09:10A M Dr. Tom Ulloa Not available Not available Not available Lab None recorded. Referral None recorded. Procedures None recorded. Surgeries None recorded. Imaging None recorded. Medication Orders hydrocodo ne 5 mg-acetam inophen 325 mg tablet 2024 025 [facility], [facility] [place], [id number], 12/22/2024 11:05:53 oxycodone 5 mg tablet [address] [facility], [facility] [place], [place], [id number], 12/22/2024 11:05:57 tramadol 50 mg tablet [address] [facility], [facility] [place], [id number], 12/22/2024 11:05:55 cephalexi n 500 mg tablet [address] [facility], [facility] [address] [place], [place], [id number], 12/22/2024 11:05:50 Patient TargetsNo targets recorded. Patient InstructionsNo instructions recorded. Reason for Referral None Reported. Results Created Date Observation Date Name Description Value Unit Range Abnormal Flag Note LastModifiedBy Organization Detail LastModifiedTime 10/23/19 25 XR, knee, 4 or more view No observ ation record ed. [email or web address] [facility] (Radiology) [address] [place], [address], 10/23/2024 12:53:24 Result Notes None recorded. Problems Name Problem SNOMED Code Status Onset Date Resolution Date Notes Provider Name and Address Organization Details Recorded Time Osteoarthri tis of left knee joint 9912456594185 09 Active 2024 Tom Ulloa MD [address] [place] [address], [id number], [facility] 5 00:23:19 Osteoarthri tis of right knee joint 9154144000835 00 Active 2024 Tom Ulloa MD [address] [place] [address], [address], [facility] 5 08:42:08 Osteoarthri tis of knee 411196756 Active 2024 Tom Ulloa MD [address] [place], [address] [place] [address] 10:53:05 Problem Notes None recorded. Procedures Surgical History None recorded. Imaging Results Imaging Date Name Status LastModified by Organiz ation Details LastModified Time 10/23/2024 XR, knee, 4 or more view completed [email or web address] [facility] (Radiology) [address] [facility], [place], [address], 10/23/2024 12:53:24 Procedure Notes None recorded. Medical Equipment None Reported. Medications Name Sig Start Date Stop Date Status Note LastModified by Organization Details LastModified Time hydrocodone 5 mg-acetamino phen 325 mg tablet Take 1 tablet every 4-6 hours by oral route as needed. 2024 active Not Available Not Available Not Avai lable tramadol 50 mg tablet Take 1 tablet every 4-6 hours by oral route as needed. 2024 active Not Available Not Available Not Avai lable cephalexin 500 mg tablet Take 1 tablet every day by oral route at bedtime, for 1 day. 2024 active Not Available Not Available Not Avai lable oxycodone 5 mg tablet Take 1 tablet every 6 hours by oral route as needed, for breakthroug h pain only. 2024 active Not Available Not Available Not Avai lable Vitals Date Recorded Body height Body mass index (BMI) Body weight Heart rate Oxygen saturation Oxygen saturation in Arterial blood by Pulse oximetry Systolic blood pressure Diastolic blood pressure Provider Name and Address Organization Details Last Updated DateTime 175.26 cm 36.9 kg/m2 003931. 09 g 87 /min 96 % 96 % 109 mm[Hg] 73 mm[Hg] Amrita Panchal [facility] 5 11:47:55 Date Recorded Body height Provider Name an d Address Organization Details Last Updated DateTime 11/20/2024 175.26 cm Radha Navarro [facility] 11/20/2024 10:35:15 Date Recorded Body height Body mass index (BMI) Body weight Heart rate Oxygen saturation Oxygen saturation in Arterial blood by Pulse oximetry Systolic blood pressure Diastolic blood pressure Provider Name and Address Organization Details Last Updated DateTime 5 175.26 cm 36.5 kg/m2 466627. 32 g 84 /min 87 % 87 % 132 mm[Hg] 79 mm[Hg] Amrita Panchal [facility] 5 10:48:48 Social History None recorded. Functional Status None recorded. Mental Status None recorded. Family History Nothing Reported. Medical History No medical history recorded. Past Encounters Encounter ID Performer Location Encounter Start Date Encounter Closed Date Diagnosis/Indication Diagnosis SNOMED-CT Code Diagnosis ICD10 Code Diagnosis Note [id number] Tom Ulloa MD [facility] ([place]) [place] [address] 10/20/2024 10:29:38 10/20/2024 11:23:55 Osteoarthritis of left knee joint 2717938532 81019 M17.12 Osteoarthr itis of right knee joint 4927705720 91861 M17.11 [id number] Tom Ulloa MD [facility] ([place] [place] [address] 11/03/2024 11:11:14 11/03/2024 12:11:41 Osteoarthritis of left knee joint 3317781573 79183 M17.12 Osteoarthr itis of right knee joint 1150248818 15015 M17.11 [id number] Cinda Pathak PA-C [facility] ([place] [place] [address] 11/13/2024 09:49:30 11/15/2024 05:57:20 Osteoarthritis of right knee joint 7062945506 10104 M17.11 [id number] Cinda Pathak PA-C [facility] ([place] [place] [address] 11/20/2024 10:06:33 11/21/2024 06:55:22 Osteoarthritis of right knee joint 6378108022 40760 M17.11 [id number] Cinda Pathak PA-C [facility] [place] [address] 11/27/2024 10:34:08 11/28/2024 06:29:13 Osteoarthritis of right knee joint 5640309830 60378 M17.11 [id number] Tmo Ulloa MD [facility] [address] [facility] [place] [address] 12/22/2024 10:20:47 12/22/2024 11:07:47 Osteoarthritis of left knee joint 5886479897 95384 M17.12 Osteoarthr itis of knee 812544620 M17.9 Health Concerns Section Related Observation LastModified by Organization Detai ls LastModified Time None Recorded Concern Status LastModified by Organization Details LastModified Time None Recorded Advance Directives Directive None Recorded Payers Encounter Date Sequence Insurance Name Policy Number Policy Weinstein Covered Member ID Weinstein Member ID Guarantor Name 11/03/2024 1 MEDICARE-[place] (MEDICARE) Trevon L Calcari [id number] Christopher L Calcari 11/03/2024 2 [place] [facility] Trevon L Calcari [id number] Christopher L Calcari 11/13/2024 1 MEDICARE-[place] (MEDICARE) Trevon L Calcari [id number] Christopher L Calcari 11/13/2024 2 [place] [facility] [place] Trevon L Calcari [id number] Christopher L Calcari 11/20/2024 1 MEDICARE-[place] (MEDICARE) Trevon L Calcari [id number] Christopher L Calcari 11/20/2024 2 [place] [facility] [place] Trevon L Calcari [id number] Christopher L Calcari 11/27/2024 1 [place] Trevon L Calcari [id number] Christopher L Calcari 11/27/2024 2 [place] [facility] Trevon L Calcari [id number] Christopher L Calcari 12/22/2024 1 MEDICARE-OR (MEDICARE) Trevon L Calcari [id number] Nolberto Dockery 12/22/2024 2 [place] [employer] [facility] [employer] Trevon Dockery [id number] Nolberto Dockery
--- OUTSIDE RECORDS SUMMARY | 2024-12-29 12:42 | XMS_ITS | Encounter Summary ---
Author Organization [facility] Address [facility] [place] [address] Care Team Providers Care Frame Polisher Name Role Phone Nolan Parker MD Primary Care Provider [phone] Dony Alba MD Unavailable Unavailable Eliz Batista-NEHA Unavailable Unavail able Jericho Rasmussen MD Unavailable [phone] Isaura Rivera APRN, NP-C Unavailable [phone] Ovi Jasmine MD Unavailable Aiyana Darling MD Unavailable Gato Steward MD Unavailable [phone] Encounter Details Date Type Department Care Team (Late st Contact Info) Description 07/17/2017 [facility] [address] [place] [address] Dony Alba MD Social History Tobacco Use [...] Care Team (Late st Contact Info) Description 02/08/2025 9:[address] [place] [address] [place] [address] Aiyana Darling MD [address] [place] [address] 02/22/2025 3:30 PM CDT Office Visit [facility] [place] [address] Aiyana Darling MD [address] [place] [address] documented as of this encounter Procedures Procedure [...] documented as of this encounter Care Teams Frame Polisher Relationship Specialty Start Date End Date Nolan Parker MD [address] [place] [address] PCP - General FAMILY PRACTICE 07/10/16 Dony Alba MD [address] [place] [address] CARDIOVASCULAR DISEASE 07/30/16 02/26/18 Lester ElizOLVIN- [address] [place] [address] NURSE PRACTITIONER 07/30/16 02/26/18 Jericho Rasmussen MD [address] [place] [address] HF Office Equipment Mechanic CARDIOVASCULAR DISEASE 02/27/18 3 Isaura Rivera APRN, NET COORDINATOR-C [address] [place] [address] Vascular/Office Equipment Mechanic CARDIOVASCULAR DISEASE 08/13/18 02/17/23 Ovi Jasmine MD [address] [place] [address] Consulting Physician INTERVENTIONAL CARDIOLOGY 06/15/19 02/17/23 Aiyana Darling MD [address] [place] [address] Consulting Physician CARDIOVASCULAR DISEASE 02/15/23 Gato Steward MD [address] [place] [address] OTOLARYNGOLOGY 08/20/24 documented as of this encounter
--- OUTSIDE RECORDS SUMMARY | 2024-12-29 12:42 | XMS_ITS | Clinical Summary ---
Author Organization [facility] Address [address] [place] [address] Care Team Providers Care Hospitality Aide Name Role Phone Nolan Parker MD Primary Care Provider [phone] Aiyana Darling MD Unavailable Gato Steward MD Unavailable [phone] Allergies Active Allergy Reactions Criticality Noted [...] Mixed hyperlipidemia 08/13/2018 Chronic diastolic heart failure ([facility] ) 07/31/2016 Paroxysmal atrial fibrillation ([facility]) 07/31/2016 Supraventricular tachycardia ([facility]) 6 Chest pain 07/31/2016 Essential hypertension 07/31/2016 Recurrent major depressive disorder 07/31/2016 Personal history of nicotine dependence 07/31/20 16 Generalized anxiety disorder 07/31/2016 Morbid obesity 07/31/2016 Chronic obstructive pulmonar y disease, unspecified COPD type ([facility]) 07/31/2016 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 Lumbar herniated disc 04/28/2013 Encounters Date Type Department Care Team Description 12/17/2024 12:30 PM CDT Office Visit [facility] [address] [place] [address] Aiyana Darling MD Heart Problem 12/17/2024 [facility] [address] [place] [address] Scanned, Doc Pccl 12/16/2024 Travel 12/10/2024 Orders Only [facility] [address] [place] [address] Aiyana Darling MD 11/20/2024 Telephone [facility] [address] [place] [address] Aiyana Darling MD Appointment Request from Last 3 Months Immunizations Immunization Administration Dates Next Due MODERNA COVID-19 (12+) [...] Sign Reading Time Taken Comments Blood Pressure 109/72 12/17/2024 1:39 PM CDT Pulse 80 12/17/2024 1:39 PM CDT Temperature 36.1 C (97 F) 03/11/2020 10:27 AM CDT Respiratory Rate 18 12/17/2024 1:39 PM CDT Oxygen Saturation 96% 12/17/2024 1:39 PM CDT Inhaled Oxygen Concentration - - Weight 112.1 kg (247 lb 3.2 oz) 12/17/2024 1:39 PM CDT Height 167.6 cm (5' 6 ) 12/17/2024 1:39 PM CDT Body Mass Index 39.9 12/17/2024 1:39 PM CDT Plan of Treatment Upcoming Encounters Date Type Department Care Team (Late st Contact Info) Description 02/08/2025 9:00 AM CDT Appointment [facility] [place] [address] Aiyana Darling MD [address] [place] [address] 02/22/2025 3:30 PM CDT Office Visit [facility] [address] [place] [address] Aiyana Darling MD [address] [place] [address] Health Maintenance Due Date Last Done Comments Colorectal Cancer Screening Colonoscopy (10 Years) 1960 Kidney Health Evaluation 1960 Annual Physical 1963 Diabetes: Retinopathy Eye Exam 1978 Hepatitis C 1978 Zoster Vaccines (1 of 2) 2010 Pneumococcal Vaccine: 50+ Years (2 of 2 - PCV) 03/22/2016 03/22/2015 Hemoglobin A1C 01/24/2022 07/26/2021 Lipid Panel 07/26/2022 07/26/2021, 07/26, 08/08/2017, Additional history exists DTaP, Tdap and Td Vaccines (3 - Td or Tdap) 11/26/2034 11/26/2024, 05/05/2015 RSV Immunization or 60+ Years Completed [...] Procedure Name Priority Date/Time Associated Diagnosis Comments ELECTROCARDIOGRAM, TRACING Routine 12/17/2024 Paroxysmal atrial fibrillation ([facility]) LIPID PROFILE (ABSTRACTED) Routine 07/26/2021 HEMOGLOBIN, GLYCOSYLATED Routine 07/26/2021 from Last 3 Months or Most Recently Relevant to Health Maintenance Results * NOT [facility] - ELECTROCARDIOGRAM, TRACING (12/17/2024) Aiyana Darling MD PROCEDURES-UNRESULTED Final Resu lt * LIPID PROFILE (ABSTRACTED) (07/26/2021) CHOLESTEROL 127 [...] Insurance MEDICAID MEDICARE MEDICARE MEDICAID Care Teams Hospitality Aide Relationship Specialty Start Date End Date Nolan Parker MD [address] [place] [address] PCP - General FAMILY PRACTICE 07/10/16 Aiyana Darling MD [address] [place] [address] Consulting Physician CARDIOVASCULAR DISEASE 02/15/23 Gato Steward MD [address] [place] [address] OTOLARYNGOLOGY 08/20/24
--- OUTSIDE RECORDS SUMMARY | 2024-12-29 12:42 | XMS_ITS | Clinical Summary ---
Author Organization [facility] Address [address] [place] [address] Care Team Providers Care Brokerage Purchase And Sale Clerk Name Role Phone Nolan Parker MD Primary Care Provide r Allergies No known active allergies Social History Tobacco Use Types Packs/Day Years Used Date Smoking Tobacco: Never Assessed Personal Safety Answer Date Recorded Getting School Help Needed Not on file 08/13 Sex and Gender Information Value Date Recorded Sex Assigned at Not on file Legal Sex Male 11:03 AM TELESALES REPRESENTATIVE Gender Identity Not on file Sexual Orientation [...] Associated Diagnosis Comments COLONOSCOPY 07/22/2012 12:00 AM TELESALES REPRESENTATIVE from Last 3 Months or Most Recently Relevant to Health Maintenance Results * COLONOSCOPY (07/22/2012 12:00 AM TELESALES REPRESENTATIVE) Anatomical Region Laterality Modality Other Narrative 07/22/2012 12:00 AM TELESALES REPRESENTATIVE Ordered by an unspecified provider. Procedure Note Provider, MD Hetal - 07/22/2012 12:00 AM CST PROCEDURE REPORT Patient: NOLBERTO CAI Account: [id number] Room No: : 1960 Patient Type: SDS [...] Recently Relevant to Health Maintenance Insurance MEDICARE [facility] Address: [address] [address] [place] [address] [facility] Care Teams Brokerage Purchase And Sale Clerk Relationship Specialty Start Date End Date Nolan Parker MD [address] [place] [address] PCP - General Family Medicine 07/11/23
--- OUTSIDE RECORDS SUMMARY | 2024-12-29 12:42 | XMS_ITS | Encounter Summary ---
Author Organization [facility] Address [address] [place] [address] Care Team Providers Care Candy Depositing Machine Operator Name Role Phone Nolan Parker MD Primary Care Provider [phone] Dony Alba MD Unavailable Unavailable Eliz Batista-NEHA Unavailable Unavail able Jericho Rasmussen MD Unavailable [phone] Isaura Rivera APRN, NP-C Unavailable [phone] Ovi Jasmine MD Unavailable Aiyana Darling MD Unavailable Gato Steward MD Unavailable [phone] Encounter Details Date Type Department Care Team (Late Contact Info) Description 11/09/2015 Abstract [facility] [place] [address] [place] [address] Dony Alba MD Social History [...] Department Care Team (Late Contact Info) Description 02/08/2025 9:00 AM CDT Appointment [address] [place] [address] Aiyana Darling MD [address] [place] [address] 02/22/2025 3:30 PM CDT Office Visit [facility] [place] [address] Aiyana Darling MD [address] [place] [address] documented as of this encounter Visit Diagnoses Not on filedocumented in this encounter Additional Health Concerns Infection Onset Date Last Indicated Resolved Time 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 07/16/2017 documented as of this encounter Care Teams Candy Depositing Machine Operator Relationship Specialty Start Date End Date Nolan Parker MD [address] [place] [address] PCP - General FAMILY PRACTICE 07/10/16 Dony Alba MD [address] [place] [address] CARDIOVASCULAR DISEASE 07/30/16 02/26/18 [facility] [address] [place] [address] NURSE PRACTITIONER 07/30/16 02/26/18 Jericho Rasmussen MD [address] [place] [address] HF Electrochemist CARDIOVASCULAR DISEASE 02/27/18 3 Isaura Rivera APRN, SAIL REPAIRER-C [address] [place] [address] Vascular/Electrochemist CARDIOVASCULAR DISEASE 08/13/18 02/17/23 Ovi Jasmine MD [address] [place] [address] Consulting Physician INTERVENTIONAL CARDIOLOGY 06/15/19 02/17/23 Aiyana Darling MD [address] [place] [address] Consulting Physician CARDIOVASCULAR DISEASE 02/15/23 Gato Steward MD [address] [place] [address] OTOLARYNGOLOGY 08/20/24 documented as of this encounter
--- OUTSIDE RECORDS SUMMARY | 2024-12-29 12:42 | XMS_ITS | Encounter Summary ---
Author Organization [facility] Address [facility] [place] [address] Care Team Providers Care Fuels Engineer Name Role Phone Nolan Parker MD Primary Care Provider [phone] Dony Alba MD Unavailable Unavailable Eliz Batista-NEHA Unavailable Unavail able Jericho Rasmussen MD Unavailable [phone] Isaura Rivera APRN, NP-C Unavailable [phone] Ovi Jasmine MD Unavailable Aiyana Darling MD Unavailable Gato Steward MD Unavailable [phone] Encounter Details Date Type Department Care Team (Late st Contact Info) Description 08/13/2017 [facility] [address] [place] [phone] Dony Alba MD Social History Tobacco Use [...] 02/08/2025 9:[address] [place] [address] Aiyana Darling MD [address] [place] [address] 02/22/2025 3:30 PM CDT Office Visit [facility] [place] [address] Aiyana Darling MD [address] [place] [address] documented as of this encounter Procedures Procedure [...] documented as of this encounter Care Teams Fuels Engineer Relationship Specialty Start Date End Date Nolan Parker MD [address] [place], [place] [id number] PCP - General FAMILY PRACTICE 07/10/16 Dony Alba MD [address] [place] [address] CARDIOVASCULAR DISEASE 07/30/16 02/26/18 Lester ElizOLVIN- [address] [place] [address] NURSE PRACTITIONER 07/30/16 02/26/18 Jericho Rasmussen MD [address] [place] [address] HF Recoating Machine Operator CARDIOVASCULAR DISEASE 02/27/18 3 Isaura Rivera APRN, CHARTER COACH DRIVER-C [address] [place] [address] Vascular/Recoating Machine Operator CARDIOVASCULAR DISEASE 08/13/18 02/17/23 Ovi Jasmine MD [address] [place] [address] Consulting Physician INTERVENTIONAL CARDIOLOGY 06/15/19 02/17/23 Aiyana Darling MD [address] [place] [address] Consulting Physician CARDIOVASCULAR DISEASE 02/15/23 Gato Steward MD [address] [place] [address] OTOLARYNGOLOGY 08/20/24 documented as of this encounter
--- OUTSIDE RECORDS SUMMARY | 2024-12-29 12:42 | XMS_ITS | Encounter Summary ---
Author Organization [facility] Address [facility]ly [facility], later [facility] [place] [address] Care Team Providers Care Special Services Agent Name Role Phone Nolan Parker MD Primary Care Provider [phone] Jericho Rasmussen MD Unavailable [phone] Isaura Rivera APRN, GATE GUARD-C Unavailable [phone] Ovi Jasmine MD Unavailable Aiyana Darling MD Unavailable Gato Steward MD Unavailable [phone] Encounter Details Date Type Department Care Team (Late st Contact Info) Description 12/17/2022 Pre-Procedure Call Stephany KrausLatoniafermin [facility] [address] [place] [address] Aiyana Darling MD [address] [place] [address] Social History Tobacco Use Types [...] Info) Description 02/08/2025 9:00 AM CDT Appointment [facility] [address] [facility] [place] [address] Aiyana Darling MD [address] [place] [address] 02/22/2025 3:30 PM CDT Office Visit [facility] [address] [place] [id number] Aiyana Darling MD [address] [place] [address] documented as of this encounter Visit Diagnoses Not on filedocumented in this encounter Additional Health Concerns Infection Onset Date Last Indicated Resolved Time 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 07/16/2017 documented as of this encounter Care Teams Special Services Agent Relationship Specialty Start Date End Date Nolan Parker MD [address] [place] [address] PCP - General FAMILY PRACTICE 07/10/16 Jericho Rasmussen MD [address] [place] [address] HF [employer] CARDIOVASCULAR DISEASE 02/27/18 3 Isaura Rivera APRN, GATE GUARD-C [address] [place] [address] Vascular/Show [employer]ess CARDIOVASCULAR DISEASE 08/13/18 02/17/23 Ovi Jasmine MD [address] [place] [phone] Consulting Physician INTERVENTIONAL CARDIOLOGY 06/15/19 02/17/23 Aiyana Darling MD [address] [place] [address] Consulting Physician CARDIOVASCULAR DISEASE 02/15/23 Gato Steward MD [address] [place] [address] OTOLARYNGOLOGY 08/20/24 documented as of this encounter
--- OUTSIDE RECORDS SUMMARY | 2024-12-29 12:42 | XMS_ITS | Encounter Summary ---
Author Organization [facility] Address [facility] [place] [address] Care Team Providers Care Floor Assembler Name Role Phone Nolan Parker MD Primary Care Provider [phone] Dony Alba MD Unavailable Unavailable Eliz Batista-NEHA Unavailable Unavail able Jericho Rasmussen MD Unavailable [phone] Isaura Rivera APRN, NP-C Unavailable [phone] Ovi Jasmine MD Unavailable Aiyana Darling MD Unavailable Gato Steward MD Unavailable [phone] Encounter Details Date Type Department Care Team (Late st Contact Info) Description 11/09/2017 Abstract [facility] CONVERSION [address] [place] [address] , Generic Conversion, Social History Tobacco Use [...] 02/08/2025 9:[address] 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 07/16/2017 documented as of this encounter Care Teams Floor Assembler Relationship Specialty Start Date End Date Nolan Parker MD [address] [place] [address] PCP - General FAMILY PRACTICE 07/10/16 Dony Alba MD [address] [place] [address] CARDIOVASCULAR DISEASE 07/30/16 02/26/18 [facility] [address] [place] [address] NURSE PRACTITIONER 07/30/16 02/26/18 Jericho Rasmussen MD [address] [place] [address] HF [employer] CARDIOVASCULAR DISEASE 02/27/18 3 Isaura Rivera APRN, AUDIT SPEC-C [address] [place] [address] Vascular/[employer] CARDIOVASCULAR DISEASE 08/13/18 02/17/23 Ovi Jasmine MD [address] [place] [address] Consulting Physician INTERVENTIONAL CARDIOLOGY 06/15/19 02/17/23 Aiyana Darling MD [address] [place] [address] Consulting Physician CARDIOVASCULAR DISEASE 02/15/23 Gato Steward MD [address] [place] [address] OTOLARYNGOLOGY 08/20/24 documented as of this encounter
[2024-12-29 14:08] LABS: MRSA (PCR) NOT DETECTED (NOT DETECTE)
== END 2024-12-29 12:35 | disposition home or self-care (01) ==
LOC: CHSLAB 12:37
PROVIDERS: PCP Family Medicine; Visit Provider Family Medicine
DX: Z01.818 Encounter for other preprocedural examination (principal)
CPT/HCPCS: 87641

== ENCOUNTER 2025-01-04 09:15 | Outpatient (RCR) | payer MEDICARE, MEDICAID, SELFPAY ==
--- NOTE | 2025-01-04 10:26 | PTOPEVAL1 ---
Assessment and note entered by Osbaldo Odom Evaluation Information Assessment Status Evaluation ICD-10 Condition Codes (PT) Aftercare following joint replacement surgery Z47. 1 Onset 12/31/24 Subjective Information Pt. reports that he underwent surgery on 12/31/24. He states that he returned home the day of surgery . He reports that his sister stayed with him for a couple days and now he is home alone. He reports that in the past couple days he has had a couple episodes of LOB resulting in some twisting of his knee. He notices more swelling over the past few days. He is still having assistance from family at home. He reports that he was given 3 exercises after surgery, but he has not performed any of the these exercise. He reports that prior to surgery he was able to care for himself and was driving. he reports that he is currently using a walker. he reports that his goal is to return to walking normally and getting into the community without assistance. Reported Pain Level Pain Score 9: Self Report Assessment PT Clinical Summary Pt. is a 64 year old male 4 days post left TKA. He presents with impaired gait, impaired left knee ROM, edema, generalized l.e. weakness and functional decline. Continued skilled PT is indicated in order to improve these areas to allow the pt. to be able to complete all IADL's and achieve his goal of improved gait. Plan of Care Interventions Electrical Stimulation,Gait Training,Hot Pack/Cold Pack,Intermittent Compression Pump,Manual Therapy ,Neuro Re-education,Patient/Caregiver Education, Therapeutic Activities,Therapeutic Exercise,Self- Care/Home Management PT Services Indicated Yes Treatment Frequency and 2x/week x 10 visits Duration These treatments will address the objective and functional deficits as defined above. The patient will be advanced safely and appropriately in order for the patient to progress towards his/her prior level of function. Additional exercises will be introduced and as well as a comprehensive home exercise program upon discharge, if needed, ?to ensure carryover of functional gains achieved in the clinic. This treatment plan has been reviewed and agreement upon by the patient.
--- NOTE | 2025-02-04 13:11 | OPREHPOC ---
Outpatient Therapy Plan of Care This is a Multidisciplinary Plan of Care that may contain components documented by all disciplines (PT, OT, and ST.) PT Problem 1 PT Problem #1 Knowledge Deficit PT Goal 1 Goal / Goal Update Pt. will be independent with a HEP addressing strength and mobility sikhism. Target Visit 2 Progress Not Met PT Goal 2 Goal / Goal Update continue Target Visit 20 PT Problem 2 PT Problem #2 Edema PT Goal 1 Goal / Goal Update Pt. will reduce girth measurements at the left knee joint line to 44cm or less. -met (42cm) Target Visit 10 Progress Met PT Problem 3 PT Problem #3 Impaired Range of Motion PT Goal 1 Goal / Goal Update Pt. will achieve 0-125 degrees left knee AROM Target Visit 10 Progress Not Met PT Goal 2 Goal / Goal Update continue Target Visit 20 PT Problem 4 PT Problem #4 Impaired Gait PT Goal 1 Goal / Goal Update Pt. will complete the 6 minute walk test without an AD for a distance of 1200' to return to community navigation. - not met Pt. will navigate steps with reciprocal pattern. - can do with a single point cane Pt. be appropriate to discontinue use of the walker and transition to a cane(5 visits) -met Target Visit 10 Progress Partially Met PT Goal 2 Goal / Goal Update continue Target Visit 20 PT Problem 5 PT Problem #5 Impaired Functional Mobility PT Goal 1 Goal / Goal Update Pt. will score 50 or better on the LEFS indicating the ability to return to community navigation. Target Visit 10 Progress Not Met PT Goal 2 Goal / Goal Update continue Target Visit 20
--- NOTE | 2025-02-04 13:11 | PTOPREEVAL ---
Assessment and note entered by JT File, PT Evaluation Information Assessment Status Re-evaluation ICD-10 Condition Codes (PT) Aftercare following joint replacement surgery Z47. 1 Onset 12/31/24 Subjective Information Pt reports that he still is only sleeping every 3 days. Pt reports that he got no sleep last night due to the pain in his L knee. Pt reports his knee feels really stiff today. Pt reports he sees Dr. Rushing on 02/16/25. Pt reports he doesn't feel like he uses his cane correctly. Pt denies having any recent falls. Pt reports that his L calf is hurting, but he has had that pain for years. Pt reports he has not been doing his exercises at home and that he does not know where they are. Reported Pain Level Pain Score 8: Self Report Assessment PT Clinical Summary Mr. Dockery is on his 10th skilled PT visit for p/ o L TKA on 12/31/24. Mr. Dockery has made some improvements in L knee flexion, strength, L knee circumference, and can walk with a single point cane instead of a walker. However, the pt still has high perceived disability on the LEFS, and he has not met his goals for knee ext and ambulation without an AD. Pt needed education on how to properly use a single point cane in a reciprocal gait pattern, and was advised to switch to using a single point cane at home. The pt would benefit from skilled PT to continue to work on his deficits and functional goals to return to his PLOF to improve his quality of life. Plan of Care Interventions Electrical Stimulation,Gait Training,Hot Pack/Cold Pack,Intermittent Compression Pump,Manual Therapy ,Neuro Re-education,Patient/Caregiver Education, Therapeutic Activities,Therapeutic Exercise,Self- Care/Home Management PT Services Indicated Yes Treatment Frequency and 2x a week for 10 visits Duration These treatments will address the objective and functional deficits as defined above. The patient will be advanced safely and appropriately in order for the patient to progress towards his/her prior level of function. Additional exercises will be introduced and as well as a comprehensive home exercise program upon discharge, if needed, ?to ensure carryover of functional gains achieved in the clinic. This treatment plan has been reviewed and agreement upon by the patient.
--- NOTE | 2025-03-18 10:21 | OPREHPOC ---
Outpatient Therapy Plan of Care This is a Multidisciplinary Plan of Care that may contain components documented by all disciplines (PT, OT, and ST.) PT Problem 1 PT Problem #1 Knowledge Deficit PT Goal 1 Goal / Goal Update Pt. will be independent with a HEP addressing strength and mobility rastafarian. Target Visit 2 Progress Not Met PT Goal 2 Goal / Goal Update continue Target Visit 20 Progress Met PT Problem 2 PT Problem #2 Edema PT Goal 1 Goal / Goal Update Pt. will reduce girth measurements at the left knee joint line to 44cm or less. -met (42cm) Target Visit 10 Progress Met PT Problem 3 PT Problem #3 Impaired Range of Motion PT Goal 1 Goal / Goal Update Pt. will achieve 0-125 degrees left knee AROM Target Visit 10 Progress Met PT Goal 2 Goal / Goal Update continue Target Visit 20 Progress Met PT Problem 4 PT Problem #4 Impaired Gait PT Goal 1 Goal / Goal Update Pt. will complete the 6 minute walk test without an AD for a distance of 1200' to return to community navigation. - not met Pt. will navigate steps with reciprocal pattern. - met Pt. be appropriate to discontinue use of the walker and transition to a cane (5 visits) -met Target Visit 10 Progress Partially Met PT Goal 2 Goal / Goal Update continue Target Visit 20 Progress Partially Met PT Problem 5 PT Problem #5 Impaired Functional Mobility PT Goal 1 Goal / Goal Update Pt. will score 50 or better on the LEFS indicating the ability to return to community navigation. Target Visit 10 Progress Not Met PT Goal 2 Goal / Goal Update continue Target Visit 20 Progress Not Met
--- NOTE | 2025-03-18 10:21 | PTOPDC ---
Assessment and note entered by Angelique Romo, PT Evaluation Information Assessment Status Discharge ICD-10 Condition Codes (PT) Aftercare following joint replacement surgery Z47. 1 Onset 12/31/24 Subjective Information Chidi reports he is ready to discharge from therapy today. He states he has a lot going on and is satisfied with the progress he's made on his knee at this point. However, he did fall when getting out of the recliner on saturday so his knee is more stiff and swollen today. Reported Pain Level Pain Score 0: Self Report Pain Score 0: Self Report Assessment PT Clinical Summary Mr. Dockery presents for his 21st skilled PT visit for L TKA today. Despite recent fall causing recurrence of stiffness and swelling pt demonstrates sufficient L knee AROM for functional activities such as walking and stairs. He has met his goal addressing knee ROM, has transitioned to ambulating without AD and can navigate stairs reciprocally. While he has not met his goal for 6MWT or LEFS outcome measure, he feels satisfied with his progress and feels comfortable discharging from skilled PT this date. Plan of Care PT Services Indicated No
== END 2025-03-18 20:00 | disposition home or self-care (01) ==
LOC: CHSPT 09:15
DX: M17.12 Unilateral primary osteoarthritis, left knee (principal); Z47.1 Aftercare following joint replacement surgery
CPT/HCPCS: 97016; 97110; 97150; 97161; 97530

== ENCOUNTER 2025-04-09 12:14 | Outpatient (CLI) | payer MEDICARE, MEDICAID, SELFPAY ==
--- NOTE | ~2025-04-09 | XR_ITS ---
EXAM: XR tibia fibula LT 2V DATE: 04/09/2025 13:16 HISTORY: pain in left lower leg . COMPARISON: None available. FINDINGS: Uncomplicated appearing total knee arthroplasty hardware. Normal mineralization. No fractur e or dislocation. No lytic or blastic lesion. Very mild degenerative change at the ankle joint. No er osion or periosteal change. Mild atherosclerotic calcification. IMPRESSION: No acute osseous finding the left tibia/fibula. Reviewed, dictated and finalized at location K.
--- NOTE | ~2025-04-09 | US_ITS ---
US arterial ankle brachial ind INDICATION: Absent pedal pulses TECHNIQUE: Segmental pressures and plethysmographic and Doppler waveforms of the brachial and lower e xtremity arteries were obtained. COMPARISON: None. FINDINGS: Right and left brachial artery pressures of 103 mm Hg and 107 mm Hg, respectively, are concordant (no rmal difference <= 30 mmHg). The right ankle-brachial index (BARB) is 1.25 (normal >= 0.9-1.0). The right great toe-brachial index (TBI) is 1.14 (normal >= 0.60). The left BARB is 1.15. The left TBI is 0.96. IMPRESSION: 1. Normal ankle-brachial indices. Reviewed, dictated and finalized at location A.
--- OUTSIDE RECORDS SUMMARY | 2025-04-09 12:19 | XMS_ITS | Clinical Summary ---
Author Organization [facility] Address [address] [place] [address] Care Team Providers Care Media Specialist Name Role Phone Nolan Parker MD Primary Care Provide r Allergies No known active allergies Social History Tobacco Use Types Packs/Day Years Used Date Smoking Tobacco: Never Assessed Personal Safety Answer Date Recorded Getting School Help Needed Not on file 08/13 Sex and Gender Information Value Date Recorded Sex Assigned at Not on file Legal Sex Male 11:03 AM RFID MANAGER Gender Identity Not on file Sexual Orientation Not on file Plan of Treatment Health Maintenance Due Date Last Done Comments Depression Screening 1960 Hepatitis C Screening 1960 Prostate Cancer Screening-PSA 1960 Hepatitis B Screening 1978 Regular Well Visit/Exam 18-64 1978 Zoster Vaccine (1 of 2) 2010 Colon Cancer Screening-Colonoscopy 07/22/2022 07/22/2012 Covid-19 Vaccine ( season) 2024 09/18/2021, 01/21/2021, 12/24/2020 Influenza Vaccine (#1) 2025 3, 06/06/2022, 06/19/2021, Additional history exists DTaP/Tdap/Td Vaccine (2 - Td or Tdap) 05/05/2025 05/05/2015 Pneumococcal vaccine <65 Aged Out 03/22/2015 No longer eligible based on patient's age to complete this topic Procedures Procedure Name Priority Date/Time Associated Diagnosis Comments COLONOSCOPY 07/22/2012 12:00 AM RFID MANAGER from Last 3 Months or Most Recently Relevant to Health Maintenance Results * COLONOSCOPY (07/22/2012 12:00 AM RFID MANAGER) Anatomical Region Laterality Modality Other Narrative 07/22/2012 12:00 AM RFID MANAGER Ordered by an unspecified provider. Procedure Note Provider, MD Hetal - 07/22/2012 12:00 AM CST PROCEDURE REPORT Patient: NOLBERTO CAI Account: [id number] Room No: : 1960 Patient Type: SDS [...] M.D. JIM/keaton TD: 07/22/2012 14:37 CC: Dr. Danile Parker Authenticated by Fernando Schmitz MD On 08/01/2012 12:28:00 PM Historical Provider ENDOSCOPY PROCEDURES Wanda l Result from Last 3 Months or Most Recently Relevant to Health Maintenance Insurance MEDICARE [facility] Care Teams Media Specialist Relationship Specialty Start Date End Date Nolan Parker MD [address] [place] [address] PCP - General Family Medicine 07/11/23
--- OUTSIDE RECORDS SUMMARY | 2025-04-09 12:20 | XMS_ITS | Patient Health Record ---
Author Organization [facility] Address [address] [place] [address] Support Name Relationship Address Phone Nolberto Dockery Guarantor Unknown [phone] Reason For Referral No Information Medications Medication SIG (Take, Route, Frequency, Duration) Notes Start Date End Date Status metFORMIN HCl 500 MG take 1 tablet (500M G) by oral route 2 times every day Oral ([facility]) 04/24/2012 Active Metoprolol Tartrate 25 MG take 1 tablet (25MG) by oral route 2 times every day Oral ([facility]) 04/24/2012 Active amLODIPine Besylate 10 MG take 1 tablet (10MG) by oral route every day Oral ([facility]) 04/24/2012 Active Vicodin ES 7.5-750 MG take 1 tablet by o ral route 3 times every day as needed for pain not to exceed 5 tablets in 24hrs Oral ([facility]) Active ALPRAZolam 0.5 MG take 1 tablet (0.5MG ) by oral route 3 times every day Oral ([facility]) Active Lisinopril 10 MG take 1 tablet (10MG) by oral route every day Oral ([facility]) 04/24/2012 Active Plan Of Treatment No Information Medical (General) History Surgical History Surgery Date(Month/Year) Cyst removal Ear Surgery
== END 2025-04-09 12:15 | disposition home or self-care (01) ==
LOC: CHSIMG 12:17
PROVIDERS: PCP Family Medicine; Visit Provider Family Medicine
DX: R09.89 Other specified symptoms and signs involving the circulatory and respiratory systems (principal); M79.662 Pain in left lower leg
CPT/HCPCS: 73590; 93922

== ENCOUNTER 2025-06-22 09:24 | Outpatient (CLI) | payer MEDICARE, MEDICAID, SELFPAY ==
[2025-06-22 09:47] LABS: Hematocrit 48.1 % (37.0-46.0); Hemoglobin 15.8 g/dL (12.4-15.3); Mean Corpuscular HGB Conc 32.8 g/dL (32-36); Mean Corpuscular Hemoglobin 29.0 pg (27.0-31.0); Mean Corpuscular Volume 88.4 fL (78.0-102.0); Platelet Count Result 205 K/mm3 (150-420); Red Blood Count 5.44 M/mm3 (4.70-6.10); White Blood Count 7.5 K/mm3 (4.8-10.8)
[2025-06-22 10:00] LABS: Hemoglobin A1C 6.1 % (<5.7)
--- OUTSIDE RECORDS SUMMARY | 2025-06-22 10:22 | XMS_ITS | Clinical Summary ---
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 Gender Identity Not on file Sexual Orientation Not on file Plan of Treatment Health Maintenance Due Date Last Done Comments Depression Screening 1960 Fall Risk Assessment 1960 Hepatitis C Screening 1960 Prostate Cancer Screening-PSA 1960 Hepatitis B Screening 1978 Zoster Vaccine (1 of 2) 2010 Pneumococcal vaccine 65+ (2 of 2 - PCV) 03/22/2016 03/22/2015 Colon Cancer Screening-Colonoscopy 07/22/20222011 Covid-19 Vaccine (4 - 2024-2 6 season) 2025 09/18/2021, 01/21/2021, 12/24/2020 Influenza Vaccine (#1) 2025 3, 06/06/2022, 06/19/2021, Additional history exists Abdominal Aortic Aneurysm (A AA) Screen 2025 Well Visit 65+ 2025 DTaP/Tdap/Td Vaccine (2 - Td or Tdap) 05/05/2025 05/05/2015 Procedures Procedure Name Priority Date/Time Associated Diagnosis Comments COLONOSCOPY 07/22/2012 12:00 AM BENEFITS CONSULTANT from Last 3 Months or Most Recently Relevant to Health Maintenance Results * COLONOSCOPY (07/22/2012 12:00 AM BENEFITS CONSULTANT) Anatomical Region Laterality Modality Other Narrative 07/22/2012 12:00 AM BENEFITS CONSULTANT Ordered by an unspecified provider. Procedure Note Provider, MD Hetal - 07/22/2012 12:00 AM CST PROCEDURE REPORT Patient: NOLBERTO CAI Account: [id number] Room No: : 1960 Patient Type: SDS [...] Recently Relevant to Health Maintenance Insurance MEDICARE [facility] Care Teams Washroom Cleaner Relationship Specialty Start Date End Date Nolan Parker MD [address] [place] [address] PCP - General Family Medicine 07/11/23
--- OUTSIDE RECORDS SUMMARY | 2025-06-22 10:22 | XMS_ITS | Patient Health Record ---
Author Organization [facility] Address [address] [place] [address] Support Name Relationship Address Phone Nolberto Dockery Guarantor Unknown [phone] Reason For Referral No Information Medications Medication SIG (Take, Route, Frequency, Duration) Notes Start Date End Date Status metFORMIN HCl 500 MG take 1 tablet (500M G) by oral route 2 times every day Oral ([facility]) 04/24/2012 Active Metoprolol Tartrate 25 MG take 1 tablet (25MG) by oral route 2 times every day Oral ([facility]) 04/24/2012 Active amLODIPine Besylate 10 MG take 1 tablet (10MG) by oral route every day Oral ([facility]) 04/24/2012 Active Vicodin ES 7.5-750 MG take 1 tablet by o ral route 3 times every day as needed for pain not to exceed 5 tablets in 24hrs Oral ([facility]) Active ALPRAZolam 0.5 MG take 1 tablet (0.5MG ) by oral route 3 times every day Oral ([facility]) Active Lisinopril 10 MG take 1 tablet (10MG) by oral route every day Oral ([facility]) 04/24/2012 Active Plan Of Treatment No Information Medical (General) History Surgical History Surgery Date(Month/Year) Cyst removal Ear Surgery
[2025-06-22 10:33] LABS: MALB Creatinine Ratio 18.5 mg/g (0-30)
[2025-06-22 11:05] LABS: Prostate Specific Antigen 1.2 ng/mL (< OR = 4.0); Thyroid Stimulating Hormone 2.430 uIU/mL (0.465-4.680)
[2025-06-24 10:33] LABS: Anion Gap 13 mmol/L (4-12); Blood Urea Nitrogen 31 mg/dL (9-20); Calcium 9.7 mg/dL (8.4-10.2); Carbon Dioxide 26 mmol/L (22-30); Chloride 102 mmol/L (98-107); Estimated Glomerular Filt Rate > 60; Glucose 87 mg/dL (65-110); Osmolality Calculated 297 mOsm/kg (285-295); Potassium 5.0 mmol/L (3.4-5.0); Sodium 141 mmol/L (137-145)
== END 2025-06-22 09:25 | disposition home or self-care (01) ==
PROVIDERS: PCP Family Medicine; Visit Provider Family Medicine
DX: E11.9 Type 2 diabetes mellitus without complications (principal); Z12.5 Encounter for screening for malignant neoplasm of prostate; I10 Essential (primary) hypertension
CPT/HCPCS: 36415; 80048; 82043; 83036; 84153; 84443; 85027; G0103